=== PATIENT | female | born 2000 | race Caucasian/White ===

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

== ENCOUNTER 2019-06-14 13:14 | Outpatient (CLI) | payer OTHER, MEDICAID ==
[2019-06-14 17:01] LABS: BASOPHILS % (AUTO) 0.4 %; EOSINOPHILS # (AUTO) 0.1 10^3/uL (0.0-0.7); EOSINOPHILS % (AUTO) 0.9 %; HGB - HEMOGLOBIN 12.8 g/dL (12.0-16.0); LYMPHOCYTES # (AUTO) 1.8 10^3/uL (1.5-3.5); LYMPHOCYTES % (AUTO) 33.4 %; MEAN CORPUSCULAR HEMOGLOBIN 29.7 pg (27.0-31.0); MEAN CORPUSCULAR HGB CONC 32.3 g/dL (32.0-36.0); MEAN CORPUSCULAR VOLUME 91.9 fL (81.0-99.0); MONOCYTES # (AUTO) 0.4 10^3/uL (0.0-1.0); MONOCYTES % (AUTO) 6.9 %; NEUTROPHILS # (AUTO) 3.1 10^3/uL (1.5-6.6); NEUTROPHILS % (AUTO) 58.2 %; PLT - PLATELET COUNT 247 10^3/uL (130-450); RED BLOOD COUNT 4.31 10^6/uL (4.20-5.40); RED CELL DISTRIBUTION WIDTH 12.3 % (12.0-15.0); WHITE BLOOD COUNT 5.4 x10^3/uL (4.8-10.8)
[2019-06-14 17:28] LABS: % IRON SATURATION 30 % (20-50); IRON 111 ug/dL (28-170); TOTAL IRON BINDING CAPACITY 365 ug/dL (250-450); TRANSFERRIN 261 mg/dL (192-382)
[2019-06-14 17:34] LABS: FERRITIN 37.3 ng/mL (11.0-306.8)
== END 2019-06-14 13:15 | disposition home or self-care (01) ==
LOC: LAB.S 13:14
PROVIDERS: ATTEND Registered Nurse
DX: R20.2 Paresthesia of skin (principal)
CPT/HCPCS: 36415; 82607; 82728; 83540; 84207; 84443; 84466; 85025

== ENCOUNTER 2019-07-27 16:53 | Outpatient (CLI) | payer MEDICARE, OTHER, MEDICAID ==
--- NOTE | 2019-07-28 01:58 | XRAY Report ---
Reason: RIGHT KNEE PAIN Procedure Date: 07/27/2019 Accession Number: [id number] / [id number] Procedure: XR - Knee 2 View RT CPT Code: Final Report FULL RESULT: EXAM: RIGHT KNEE RADIOGRAPHY EXAM DATE: 07/27/2019 05:09 PM. CLINICAL HISTORY: RIGHT KNEE PAIN. COMPARISON: None. TECHNIQUE: 2 views. FINDINGS: Bones: No acute fractures or suspicious bone lesions. Joints: No effusion. No subluxations. Joint spaces are preserved. Soft Tissues: Unremarkable. IMPRESSION: Unremarkable knee radiography. [facility]
== END 2019-07-27 16:54 | disposition home or self-care (01) ==
LOC: DI 16:53
PROVIDERS: ATTEND Registered Nurse
DX: M25.561 Pain in right knee (principal)

== ENCOUNTER 2019-11-18 13:55 | Outpatient (CLI) | payer MEDICARE, OTHER ==
[2019-11-18 17:55] LABS: BILIRUBIN,URINE NEGATIVE (NEGATIVE); GLUCOSE, URINE (UA) NEGATIVE (NEGATIVE); KETONES,URINE (UA) 15 mg/dL (NEGATIVE); LEUKOCYTE ESTERASE, URINE NEGATIVE (NEGATIVE); NITRITE,URINE NEGATIVE (NEGATIVE); OCCULT BLOOD,URINE NEGATIVE (NEGATIVE); PROTEIN,URINE NEGATIVE (NEGATIVE); UROBILINOGEN,URINE 0.2 (NORMAL) E.U./dL (NORMAL)
[2019-11-18 18:02] LABS: BACTERIA,URINE None Seen /HPF (None Seen); CLARITY,URINE CLOUDY (CLEAR); RBC,URINE None Seen /HPF (0-5); SQUAMOUS EPITHELIAL CELL,UR NONE SEEN (<= Few)
== END 2019-11-18 23:59 | disposition home or self-care (01) ==
LOC: LAB.S 13:55
PROVIDERS: ATTEND Emergency Medicine
DX: N39.0 Urinary tract infection, site not specified (principal)
CPT/HCPCS: 81001; 87086

== ENCOUNTER 2019-12-07 08:00 | Outpatient (CLI) | payer MEDICARE, OTHER | END 2019-12-07 23:59 | disposition home or self-care (01) | LOC: LAB.F 08:00 | PROVIDERS: ATTEND Family Medicine | DX: N39.0 Urinary tract infection, site not specified (principal) | CPT/HCPCS: 81002 ==

== ENCOUNTER 2020-01-30 14:37 | Outpatient (CLI) | payer MEDICARE, MEDICAID | END 2020-01-30 14:38 | disposition critical access hospital (66) | LOC: EMS 14:37 | PROVIDERS: ATTEND Surgery | DX: S69.91XA Unspecified injury of right wrist, hand and finger(s), initial encounter (principal); S80.211A Abrasion, right knee, initial encounter; W18.39XA Other fall on same level, initial encounter; Y93.51 Activity, roller skating (inline) and skateboarding; Y92.480 Sidewalk as the place of occurrence of the external cause | CPT/HCPCS: A0425; A0429 ==

== ENCOUNTER 2020-01-30 15:12 | Emergency (ER) | payer MEDICARE, MEDICAID ==
[2020-01-30] MEDS ORDERED: KETOROLAC 60 MG/2 ML VIAL IM STA (15:17)
[2020-01-30] MEDS ORDERED: ROPIVACAINE 0.5% PF 20 ML AMPULE SUBQ STA (15:17)
[2020-01-30 15:20] VITALS: BP 115/72
--- NOTE | 2020-01-30 15:55 | XRAY Report ---
PROCEDURE: Wrist 4 View RT INDICATIONS: fall, R hand/wrist pain TECHNIQUE: 4 views of the wrist were acquired. COMPARISON: None FINDINGS: Bones: Comminuted, intra-articular fracture of the distal right radius. No dislocations. No suspici ous bony lesions. Scaphoid view: Scapholunate interval appears maintained. The visualized scaphoid appears intact. Soft tissues: No suspicious soft tissue calcifications. IMPRESSION: Comminuted distal right radial fracture with intraarticular extension. Reviewed by: Haseeb Claire MD on 01/30/2020 3:54 PM PDT Approved by: Haseeb Claire MD on 01/30/2020 3:54 PM PDT Station ID: [id number]
[2020-01-30] MEDS ORDERED: BACITRACIN ZINC OINT 1 PACKET TOP STA (16:02)
--- NOTE | 2020-01-30 16:04 | ED Physician Documentation ---
PD HPI UPPER EXT INJURY - Stated complaint Stated Complaint: GLF/HAND INJURY - Chief complaint Chief Complaint: Trauma Ext - History obtained from History obtained from: Patient - History of Present Illness Location: Right, Wrist Type of injury: Fall Where injury occurred: Street Pain level max: 7 Pain level now: 7 Improved by: Rest, Ice, Immobilization Worsened by: Moving, Palpating Associated symptoms: No: Weakness, Numbness, Tingling, Swelling - Additonal information Additional information: 20-year-old female was rollerblading today when she fell landing on the right wrist. Has pain and swelling to the right wrist now. Worse with movement and better with rest. Also has an abrasion to the right knee. Ambulatory on scene. Tetanus up-to-date. Patient is right-handed. 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 Psych: Depression, Anxiety, ADD/ADHD Musculoskeletal: None Derm: None - Past Surgical History Past Surgical History: Yes HEENT: Tonsil/Adenoidectomy - Present Medications Home Medications: Ambulatory Orders Medication Instructions Recorded Confirmed Cyclobenzaprine [Flexeril] 10 mg PO TID PRN #20 tablet 08/28/17 Ondansetron Odt [Zofran] 4 mg TL Q6H PRN #10 tablet 08/28/17 Pramipexole Di-HCl [Mirapex] 1 tab PO DAILY PRN 08/28/17 08/28/17 oxyCODONE/ACET 5/325 [Percocet 5 1 - 2 each PO Q6H PRN #14 tablet 08/28/17 mg/325 mg] Ibuprofen [Motrin] 800 mg PO Q8H PRN #30 tablet 01/30/20 - Allergies Allergies/Adverse Reactions: Allergies Allergy/AdvReac Type Severity Reaction Status Date / Time codeine [Codeine] Allergy throat Verified 01/30/20 15:19 swelling - Social History Does the pt smoke?: Yes Smoking Status: Current every day smoker Does the pt drink ETOH?: No Does the pt have substance abuse?: Yes - Immunizations Immunizations are current?: Yes - POLST Patient has POLST: No PD ED PE NORMAL - Vitals Vital signs reviewed: Yes - General General: Alert and oriented X 3, No acute distress - HEENT HEENT: Atraumatic - Neck Neck: Supple, no meningeal sign, No bony TTP - Back Back: No spinal TTP - Derm Derm: Warm and dry - Extremities Extremities: Other (Abrasion to the right knee. No bony tenderness. Tenderness and swelling to the distal right wrist. No snuffbox tenderness. Otherwise normal examination of the hand, wrist, forearm.) - Neuro Neuro: Alert and oriented X 3 - Psych Psych: Normal mood, Normal affect Results - Vitals Vitals: Vital Signs - 24 hr 01/30/20 15:15 Temperature 37.6 C H Heart Rate 82 Respiratory 18 Rate Blood Pressure 115/72 O2 Saturation 100 Oxygen O2 Source Room air - Rads (name of study) Right wrist x-ray Radiology: Prelim report reviewed, EMP read contemporaneously, See rad report (Comminuted distal right radial fracture with intraarticular extension. ) Procedures - Splint (location) R wrist Splint applied by: Physician, Tech Type of splint: Sugar tong Other: Patient tolerated well, No complications, Neurovascular intact, Good alignment, Sling provided PD MEDICAL DECISION MAKING - ED course Complexity details: reviewed results, re-evaluated patient, considered differential, d/w patient ED course: Splint applied to the right wrist. Sling given. Abrasions were cleansed and bandaged. Tetanus up-to-date. Patient counseled regarding signs and symptoms for which I believe and urgent re-evaluation would be necessary. Patient with good understanding of and agreement to plan and is comfortable going home at this time This document was made in part using voice recognition software. While efforts are made to proofread this document, sound alike and grammatical errors may occur. Departure - Departure Disposition: 01 Home, Self Care Clinical Impression: Abrasion Distal radius fracture, right Qualifiers: Encounter type: initial encounter Fracture type: closed Fracture morphology: unspecified fracture morphology Qualified Code(s): S52.501A - Unspecified fracture of the lower end of right radius, initial encounter for closed fracture Condition: Good Instructions: ED Fx Forearm Radius Ulna No Redu Requ Follow-Up: Paula Marie ARNP [Primary Care Provider] - [facility] [Provider Group] - Within 1 week Prescriptions: Ibuprofen [Motrin] 800 mg PO Q8H PRN #30 tablet PRN Reason: PAIN &/OR FEVER Comments: Return if you worsen. follow up with orthopedics for further care. Keep the splint clean and dry. Call the orthopedic office for an appointment.
== END 2020-01-30 17:08 | disposition home or self-care (01) ==
LOC: EDUNIT# → ED 15:12
DX: S52.571A Other intraarticular fracture of lower end of right radius, initial encounter for closed fracture (principal); S80.211A Abrasion, right knee, initial encounter; V00.111A Fall from in-line roller-skates, initial encounter; Y93.51 Activity, roller skating (inline) and skateboarding; Y92.410 Unspecified street and highway as the place of occurrence of the external cause; F17.200 Nicotine dependence, unspecified, uncomplicated
CPT/HCPCS: 29125; 99283

== ENCOUNTER 2020-07-08 08:00 | Outpatient (CLI) | payer MEDICARE, MEDICAID ==
--- NOTE | 2020-07-08 09:50 | XRAY Report ---
PROCEDURE: Hand 3 View LT INDICATIONS: LEFT HAND PAIN TECHNIQUE: 3 views of the hand(s) acquired. COMPARISON: None FINDINGS: Bones: Oblique minimally displaced fracture of the fourth metacarpal through the metaphysis. No exten raffaele into the carpometacarpal or metacarpophalangeal joint spaces. Remaining bones intact. No suspici ous lytic or blastic osseous.. Soft tissues: No suspicious soft tissue calcifications. IMPRESSION: Oblique minimally displaced fracture of the fourth metacarpal. Reviewed by: Jed Calloway MD on 07/08/2020 8:48 AM [facility] Approved by: Jed Calloway MD on 07/08/2020 8:48 AM [facility] Station ID: [id number]
== END 2020-07-08 23:59 | disposition home or self-care (01) ==
LOC: DI.S 08:00
PROVIDERS: ATTEND Physician Assistant Medical
DX: S62.395A Other fracture of fourth metacarpal bone, left hand, initial encounter for closed fracture (principal)

== ENCOUNTER 2020-07-19 08:00 | Outpatient (CLI) | payer MEDICARE, MEDICAID | END 2020-07-19 23:59 | disposition home or self-care (01) | LOC: LAB.F 08:00 | PROVIDERS: ATTEND Registered Nurse | DX: Z32.00 Encounter for pregnancy test, result unknown (principal) ==

== ENCOUNTER 2020-08-07 09:37 | Outpatient (CLI) | payer MEDICARE, MEDICAID ==
[2020-08-07 14:49] LABS: BASOPHILS % (AUTO) 0.6 %; EOSINOPHILS # (AUTO) 0.1 10^3/uL (0.0-0.7); EOSINOPHILS % (AUTO) 1.5 %; HCT - HEMATOCRIT 42.3 % (37.0-47.0); HGB - HEMOGLOBIN 13.4 g/dL (12.0-16.0); LYMPHOCYTES # (AUTO) 1.4 10^3/uL (1.5-3.5); LYMPHOCYTES % (AUTO) 42.8 %; MEAN CORPUSCULAR HEMOGLOBIN 29.6 pg (27.0-31.0); MEAN CORPUSCULAR HGB CONC 31.7 g/dL (32.0-36.0); MEAN CORPUSCULAR VOLUME 93.4 fL (81.0-99.0); MONOCYTES # (AUTO) 0.2 10^3/uL (0.0-1.0); MONOCYTES % (AUTO) 7.4 %; NEUTROPHILS # (AUTO) 1.6 10^3/uL (1.5-6.6); NEUTROPHILS % (AUTO) 47.7 %; PLT - PLATELET COUNT 254 10^3/uL (130-450); RED BLOOD COUNT 4.53 10^6/uL (4.20-5.40); RED CELL DISTRIBUTION WIDTH 12.8 % (12.0-15.0); WHITE BLOOD COUNT 3.3 x10^3/uL (4.8-10.8)
== END 2020-08-07 09:38 | disposition home or self-care (01) ==
LOC: LAB.S 09:37
PROVIDERS: ATTEND Registered Nurse
DX: K44.9 Diaphragmatic hernia without obstruction or gangrene (principal); R11.2 Nausea with vomiting, unspecified; K57.90 Diverticulosis of intestine, part unspecified, without perforation or abscess without bleeding; R39.15 Urgency of urination; N39.0 Urinary tract infection, site not specified
CPT/HCPCS: 36415; 85025; 87086

== ENCOUNTER 2020-08-12 09:04 | Outpatient (CLI) | payer MEDICARE, MEDICAID | END 2020-08-12 23:59 | disposition home or self-care (01) | LOC: LAB.R 09:04 | PROVIDERS: ATTEND Registered Nurse | DX: K44.9 Diaphragmatic hernia without obstruction or gangrene (principal); R11.2 Nausea with vomiting, unspecified; K57.90 Diverticulosis of intestine, part unspecified, without perforation or abscess without bleeding | CPT/HCPCS: 82270 ==

== ENCOUNTER 2020-12-03 20:35 | Emergency (ER) | payer MEDICARE, MEDICAID ==
[2020-12-03 20:45] VITALS: BP 136/83
== END 2020-12-03 22:02 | disposition left against medical advice (07) ==
LOC: ED 20:35
DX: Z53.21 Procedure and treatment not carried out due to patient leaving prior to being seen by health care provider (principal)

== ENCOUNTER 2021-03-31 11:52 | Outpatient (CLI) | payer MEDICARE, MEDICAID ==
[2021-03-31 14:58] LABS: BASOPHILS % (AUTO) 0.8 %; EOSINOPHILS # (AUTO) 0.1 10^3/uL (0.0-0.7); EOSINOPHILS % (AUTO) 1.5 %; HCT - HEMATOCRIT 40.4 % (37.0-47.0); LYMPHOCYTES # (AUTO) 1.3 10^3/uL (1.5-3.5); MEAN CORPUSCULAR HEMOGLOBIN 30.1 pg (27.0-31.0); MEAN CORPUSCULAR HGB CONC 32.2 g/dL (32.0-36.0); MEAN CORPUSCULAR VOLUME 93.5 fL (81.0-99.0); MEAN PLATELET VOLUME 9.9 fL (7.9-10.8); MONOCYTES # (AUTO) 0.3 10^3/uL (0.0-1.0); MONOCYTES % (AUTO) 8.6 %; NEUTROPHILS # (AUTO) 2.2 10^3/uL (1.5-6.6); NEUTROPHILS % (AUTO) 55.8 %; PLT - PLATELET COUNT 246 10^3/uL (130-450); RED BLOOD COUNT 4.32 10^6/uL (4.20-5.40); RED CELL DISTRIBUTION WIDTH 12.4 % (12.0-15.0)
[2021-03-31 15:03] LABS: ALBUMIN 4.6 g/dL (3.2-5.5); ALBUMIN/GLOBULIN RATIO 2.3 (1.0-2.2); BILIRUBIN,TOTAL 1.1 mg/dL (0.2-1.0); CALCIUM 9.3 mg/dL (8.5-10.3); CREATININE 0.5 mg/dL (0.4-1.0); POTASSIUM 3.9 mmol/L (3.5-5.0); TOTAL PROTEIN 6.6 g/dL (6.7-8.2)
== END 2021-03-31 23:59 | disposition home or self-care (01) ==
LOC: LAB.S 11:52
PROVIDERS: ATTEND Nurse Practitioner
DX: R25.2 Cramp and spasm (principal)
CPT/HCPCS: 36415; 80053; 85025

== ENCOUNTER 2021-06-02 08:00 | Outpatient (CLI) | payer MEDICARE, MEDICAID | END 2021-06-02 23:59 | disposition home or self-care (01) | LOC: LAB 08:00 | PROVIDERS: ATTEND Physician Assistant Medical | DX: U07.1 COVID-19 (principal) | CPT/HCPCS: 87070; U0004 ==

== ENCOUNTER 2022-04-25 03:45 | Emergency (ER) | payer MEDICARE, MEDICAID ==
[2022-04-25] MEDS ORDERED: RABIES IMMUNE GLOBULIN 300 UNITS/2 ML IM STA (04:10)
[2022-04-25] MEDS ORDERED: RABIES VACCINE 2.5 UNIT SYRINGE IM ONE (04:10)
--- NOTE | 2022-04-25 04:34 | ED Physician Documentation ---
History of Present Illness - Stated complaint Stated Complaint: RABIES VAC - Chief complaint Chief Complaint: Laceration - Additonal information Additional information: Patient is a 22-year-old female With no significant past medical history presenting for evaluation of rabies shot. Patient was scratched on her right arm 3 days ago by One of her 4 ferrets. The same ferret today's started exhibiting abnormal behavior with Foaming at the mouth, seizure activity, Chewing its own pause. This prompted concern That the ferret had possibly contracted rabies as it does also go outside. The other 3 ferrets are acting normally. The Ferretts vaccinations are up-to-date including having received the rabies shots.Patient called 911 And paramedics advised that she come to the ER. The blasting contract miner spoke to her and plans to have animal control come out tomorrow to take the ferrets and try to test it for rabies. Patient's tetanus shot is up-to-date.Patient does not think that she has previously been vaccinated for rabies. 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 HEENT: None Psych: Depression, Anxiety, ADD/ADHD Musculoskeletal: None Derm: None - Past Surgical History Past Surgical History: Yes HEENT: Tonsil/Adenoidectomy - Present Medications Home Medications: Ambulatory Orders Medication Instructions Recorded Confirmed No Known Home Medications 04/25/22 04/25/22 - Allergies Allergies/Adverse Reactions: Allergies Allergy/AdvReac Type Severity Reaction Status Date / Time codeine [Codeine] Allergy throat Verified 04/25/22 03:55 swelling - Social History Does the pt smoke?: Yes Smoking Status: Current every day smoker Does the pt drink ETOH?: No Does the pt have substance abuse?: Yes - Immunizations Immunizations are current?: Yes - POLST Patient has POLST: No PD ED PE NORMAL - General General: Alert and oriented X 3, No acute distress, Well developed/nourished - HEENT HEENT: Atraumatic, Moist mucous membranes - Neck Neck: Supple, no meningeal sign - Cardiac Cardiac: RRR - Respiratory Respiratory: No respiratory distress - Derm Derm: No rash, Other (Small healed superficial wound to right arm) - Extremities Extremities: No edema Results - Vitals Vitals: Vital Signs - 24 hr 04/25/22 04/25/22 03:48 05:04 Temperature 36.5 C Heart Rate 86 89 Respiratory 18 18 Rate Blood Pressure 124/62 131/86 H O2 Saturation 100 100 Oxygen O2 Source Room air PD MEDICAL DECISION MAKING - ED course ED course: Patient presenting for rabies vaccination after being scratched by her ferrets and her ferret exhibiting abnormal behaviors today.Patient received rabies immunoglobulin and first dose of the vaccine series. She is instructed to return to the ER for the remainder of the vaccination. She is is aware of the importance of completing the series. Departure - Departure Disposition: 01 Home, Self Care Clinical Impression: Need for rabies vaccination Condition: Stable Instructions: Rabies Comments: You have received rabies Immunoglobulin and the first vaccination for rabies. In order to complete the rabies vaccine you will need to return on Day 3 (Apr 28); Day 7 (May 02), and Day 14 (May 09). It is very important that you return to the emergency department on these days in order to receive the rest of the vaccination series.
[2022-04-25 05:05] VITALS: BP 131/86
== END 2022-04-25 05:04 | disposition home or self-care (01) ==
LOC: ED 03:45
DX: Z20.3 Contact with and (suspected) exposure to rabies (principal); Z29.14 Encounter for prophylactic rabies immune globulin
CPT/HCPCS: 90471; 96372; 99281; 99282

== ENCOUNTER 2022-04-28 16:49 | Emergency (ER) | payer MEDICARE, MEDICAID ==
--- NOTE | 2022-04-28 17:40 | ED Physician Documentation ---
History of Present Illness - Stated complaint Stated Complaint: RABIES VAC - Chief complaint Chief Complaint: General - History obtained from History obtained from: Patient - Additonal information Additional information: Patient comes to the emergency department for chief complaint of needing a second rabies vaccine shot. The patient states that she has pet ferrets and that 3 days ago, she heard a high-pitched screaming sound coming from the cage and came in to find one of her ferrets bloody, arching, and foaming at the mouth, making the noise. She states that the ferret tried to attack her, even though it had just sat calmly in her hands earlier in the day. She did not actually end up getting bitten, though she does have bruises on her upper arm from the ferret trended by her through her close. Patient states the ferret the next day and remained in the same agonizing condition all that night. The patient states none of her other ferrets have had any symptoms. She has already gotten 1 rabies vaccine and is here for her second. The patient denies any symptoms herself. Review of Systems Ten Systems: 10 systems reviewed and negative Constitutional: reports: Reviewed and negative Eyes: reports: Reviewed and negative Ears: reports: Reviewed and negative Nose: reports: Reviewed and negative Throat: reports: Reviewed and negative Cardiac: reports: Reviewed and negative Respiratory: reports: Reviewed and negative GI: reports: Reviewed and negative : reports: Reviewed and negative Skin: reports: Reviewed and negative Musculoskeletal: reports: Reviewed and negative Neurologic: reports: Reviewed and negative Psychiatric: reports: Reviewed and negative Endocrine: reports: Reviewed and negative Immunocompromised: reports: Reviewed and negative PD PAST MEDICAL HISTORY - Past Medical History Cardiovascular: None Respiratory: None Endocrine/Autoimmune: None GI: GERD 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 : None HEENT: None Psych: Depression, Anxiety, ADD/ADHD Musculoskeletal: None Derm: None - Past Surgical History Past Surgical History: Yes HEENT: Tonsil/Adenoidectomy - Present Medications Home Medications: Ambulatory Orders Medication Instructions Recorded Confirmed No Known Home Medications 04/25/22 04/25/22 - Allergies Allergies/Adverse Reactions: Allergies Allergy/AdvReac Type Severity Reaction Status Date / Time codeine [Codeine] Allergy throat Verified 04/28/22 17:16 swelling - Social History Does the pt smoke?: Yes Smoking Status: Current every day smoker Does the pt drink ETOH?: No Does the pt have substance abuse?: Yes - Immunizations Immunizations are current?: Yes - POLST Patient has POLST: No PD ED PE NORMAL - Vitals Vital signs reviewed: Yes - General General: Alert and oriented X 3, No acute distress, Well developed/nourished - HEENT HEENT: Atraumatic, PERRL, EOMI, Moist mucous membranes - Neck Neck: Supple, no meningeal sign - Cardiac Cardiac: RRR, No murmur, Strong equal pulses - Respiratory Respiratory: No respiratory distress, Clear bilaterally - Derm Derm: Normal color, Warm and dry, No rash, Other (Contusions without skin breakage left upper arm.) - Extremities Extremities: No deformity - Neuro Neuro: Alert and oriented X 3 - Psych Psych: Normal mood, Normal affect Results - Vitals Vitals: Vital Signs - 24 hr 04/28/22 17:14 Temperature 36.6 C Heart Rate 78 Respiratory 14 Rate Blood Pressure 135/60 H O2 Saturation 100 Oxygen O2 Source Room air PD MEDICAL DECISION MAKING - ED course Complexity details: considered differential, d/w patient ED course: The patient was given her rabies vaccine and discharged with instructions to return according to the vaccine schedule. Departure - Departure Disposition: 01 Home, Self Care Clinical Impression: Rabies exposure Condition: Stable Instructions: Rabies Vaccine suspension for injection Comments: You have been given your second shot of rabies vaccine today. Please follow-up according to your schedule for the subsequent doses until your course is complete.
[2022-04-28] MEDS: RABIES VACCINE 2.5 UNIT SYRINGE IM ONE (17:48)
[2022-04-28 18:00] VITALS: BP 112/71
== END 2022-04-28 18:00 | disposition home or self-care (01) ==
LOC: ED 16:49
DX: Z29.14 Encounter for prophylactic rabies immune globulin (principal); Z23 Encounter for immunization; Z71.85 Encounter for immunization safety counseling; F17.200 Nicotine dependence, unspecified, uncomplicated
CPT/HCPCS: 90471; 99281

== ENCOUNTER 2022-05-02 20:30 | Emergency (ER) | payer MEDICARE, MEDICAID ==
[2022-05-02] MEDS ORDERED: RABIES VACCINE 2.5 UNIT SYRINGE IM ONE (20:39)
--- NOTE | 2022-05-02 20:40 | ED Physician Documentation ---
History of Present Illness - Stated complaint Stated Complaint: RABIES VACCINE - History obtained from History obtained from: Patient - Additonal information Additional information: This is a 22-year-old female who presents for a rabies vaccine. She has started the series as per prior notes after getting scratched by her ferret which subsequently exhibited signs of illness. Prior notes reviewed. Patient has not had any symptoms, she has tolerated the other vaccines well. 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 HEENT: None Psych: Depression, Anxiety, ADD/ADHD Musculoskeletal: None Derm: None - Past Surgical History Past Surgical History: Yes HEENT: Tonsil/Adenoidectomy - Present Medications Home Medications: Ambulatory Orders Medication Instructions Recorded Confirmed No Known Home Medications 04/25/22 05/02/22 - Allergies Allergies/Adverse Reactions: Allergies Allergy/AdvReac Type Severity Reaction Status Date / Time codeine [Codeine] Allergy throat Verified 05/02/22 20:43 swelling - Social History Does the pt smoke?: Yes Smoking Status: Current every day smoker Does the pt drink ETOH?: No Does the pt have substance abuse?: Yes - Immunizations Immunizations are current?: Yes - POLST Patient has POLST: No Results - Vitals Vitals: Vital Signs - 24 hr 05/02/22 20:41 Temperature 36.3 C L Heart Rate 88 Respiratory 16 Rate Blood Pressure 116/62 O2 Saturation 97 Oxygen O2 Source Room air PD MEDICAL DECISION MAKING - ED course Complexity details: reviewed old records, d/w patient ED course: Pt presented for the next rabies vaccine in her series of vaccines after getting scratched by a pet ferret. She has not had any sx of rabies or other illness and has tolerated prior injections well. She will return on May 09 for the final shot in this series. Departure - Departure Disposition: Home, Self Care Condition: Good Comments: Please follow-up on May 09 for the final shot in your rabies vaccine series. It is important that you stick to the schedule. Please return if you have new symptoms or any other concerns
[2022-05-02 21:13] VITALS: BP 122/69
== END 2022-05-02 21:13 | disposition home or self-care (01) ==
LOC: ED 20:30
DX: Z29.14 Encounter for prophylactic rabies immune globulin (principal); F17.200 Nicotine dependence, unspecified, uncomplicated
CPT/HCPCS: 90471; 99281

== ENCOUNTER 2022-05-09 13:37 | Emergency (ER) | payer MEDICARE, MEDICAID ==
[2022-05-09 13:46] VITALS: BP 125/82
--- NOTE | 2022-05-09 13:57 | ED Physician Documentation ---
History of Present Illness - Stated complaint Stated Complaint: NEEDS FINAL RABIES SHOT - Chief complaint Chief Complaint: General - History obtained from History obtained from: Patient - History of Present Illness Timing: Today - Additonal information Additional information: 22-year-old Quin Pineda was exposed to her ferret who unexpectedly and the vet was concerned about the possibility of rabies and has recommended the patient get a rabies vaccination series. The patient has completed the other doses of her rabies vaccination and today is the last day of her series. She presents to the emergency department for vaccination on schedule. she denies any specific symptoms. She is not otherwise ill. 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: None Psych: Depression, Anxiety, ADD/ADHD Musculoskeletal: None Derm: None - Past Surgical History Past Surgical History: Yes HEENT: Tonsil/Adenoidectomy - Present Medications Home Medications: Ambulatory Orders Medication Instructions Recorded Confirmed No Known Home Medications 04/25/22 05/02/22 - Allergies Allergies/Adverse Reactions: Allergies Allergy/AdvReac Type Severity Reaction Status Date / Time codeine [Codeine] Allergy throat Verified 05/02/22 20:43 swelling - Social History Does the pt smoke?: Yes Smoking Status: Current every day smoker Does the pt drink ETOH?: No Does the pt have substance abuse?: Yes - Immunizations Immunizations are current?: Yes - POLST Patient has POLST: No PD ED PE NORMAL - Vitals Vital signs reviewed: Yes (normal ) - General General: Alert and oriented X 3, No acute distress, Well developed/nourished - HEENT HEENT: Atraumatic, PERRL, EOMI - Neck Neck: No bony TTP - Respiratory Respiratory: No respiratory distress - Derm Derm: Normal color, Warm and dry, No rash - Extremities Extremities: No deformity, No edema - Neuro Neuro: Alert and oriented X 3, 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, No motor deficit, No sensory deficit, Normal speech Eye Opening: Spontaneous Motor: Obeys Commands Verbal: Oriented GCS Score: 15 - Psych Psych: Normal mood, Normal affect Results - Vitals Vitals: Vital Signs - 24 hr 05/09/22 13:45 Temperature 37.0 C Heart Rate 77 Respiratory 18 Rate Blood Pressure 125/82 H O2 Saturation 100 Oxygen O2 Source Room air PD MEDICAL DECISION MAKING - ED course Complexity details: considered differential, d/w patient ED course: 22-year-old female needing the last of her rabies vaccination series is given her last dose of rabies vaccination here at the emergency department in the triage area. Departure - Departure Disposition: 01 Home, Self Care Clinical Impression: Need for rabies vaccination Condition: Stable Instructions: Rabies Vaccine suspension for injection Follow-Up: Paula Marie ARNP [Credentialed Staff Provider] -
[2022-05-09] MEDS ORDERED: RABIES VACCINE 2.5 UNIT SYRINGE IM ONE (14:02)
== END 2022-05-09 15:00 | disposition home or self-care (01) ==
LOC: ED 13:37
DX: Z29.14 Encounter for prophylactic rabies immune globulin (principal); Z23 Encounter for immunization; Z71.85 Encounter for immunization safety counseling
CPT/HCPCS: 90471; 99281; 99282

== ENCOUNTER 2022-07-22 08:00 | Outpatient (CLI) | payer MEDICARE, MEDICAID | END 2022-07-22 23:59 | disposition home or self-care (01) | LOC: LAB.S 08:00 | PROVIDERS: ATTEND Nurse Practitioner | DX: Z32.00 Encounter for pregnancy test, result unknown (principal) ==

== ENCOUNTER 2022-07-23 08:36 | Outpatient (CLI) | payer MEDICARE, MEDICAID ==
[2022-07-23 14:29] LABS: BASOPHILS % (AUTO) 0.8 %; EOSINOPHILS # (AUTO) 0.1 10^3/uL (0.0-0.7); EOSINOPHILS % (AUTO) 3.2 %; HCT - HEMATOCRIT 42.8 % (37.0-47.0); HGB - HEMOGLOBIN 13.8 g/dL (12.0-16.0); LYMPHOCYTES # (AUTO) 1.3 10^3/uL (1.5-3.5); LYMPHOCYTES % (AUTO) 34.4 %; MEAN CORPUSCULAR HEMOGLOBIN 29.3 pg (27.0-31.0); MEAN CORPUSCULAR HGB CONC 32.2 g/dL (32.0-36.0); MEAN CORPUSCULAR VOLUME 90.9 fL (81.0-99.0); MEAN PLATELET VOLUME 10.2 fL (7.9-10.8); MONOCYTES # (AUTO) 0.3 10^3/uL (0.0-1.0); MONOCYTES % (AUTO) 7.7 %; NEUTROPHILS % (AUTO) 53.6 %; PLT - PLATELET COUNT 254 10^3/uL (130-450); RED BLOOD COUNT 4.71 10^6/uL (4.20-5.40); RED CELL DISTRIBUTION WIDTH 12.5 % (12.0-15.0); WHITE BLOOD COUNT 3.8 x10^3/uL (4.8-10.8)
[2022-07-23 15:20] LABS: ALBUMIN 4.5 g/dL (3.2-5.5); ALBUMIN/GLOBULIN RATIO 1.7 (1.0-2.2); BILIRUBIN,TOTAL 0.9 mg/dL (0.2-1.0); CALCIUM 9.3 mg/dL (8.5-10.3); CREATININE 0.6 mg/dL (0.4-1.0); POTASSIUM 3.9 mmol/L (3.5-5.0); TOTAL PROTEIN 7.1 g/dL (6.7-8.2)
[2022-07-23 15:39] LABS: THYROID STIMULATING HORMONE 1.25 uIU/mL (0.34-5.60)
== END 2022-07-23 08:37 | disposition home or self-care (01) ==
LOC: LAB.S 08:36
PROVIDERS: ATTEND Nurse Practitioner
DX: E04.1 Nontoxic single thyroid nodule (principal); R11.2 Nausea with vomiting, unspecified
CPT/HCPCS: 36415; 80053; 84443; 85025

== ENCOUNTER 2022-07-30 08:00 | Outpatient (CLI) | payer MEDICARE, MEDICAID, OTHER ==
[2022-07-31 01:18] LABS: CHLAMYDIA TRACHOMATIS DNA NEGATIVE (NEGATIVE); NEISSERIA GONORRHOEAE DNA NEGATIVE (NEGATIVE)
[2022-07-31 01:20] LABS: BACTERIAL VAGINOSIS DNA NEGATIVE (NEGATIVE); CANDIDA GLABRATA DNA NEGATIVE (NEGATIVE); CANDIDA GROUP DNA NEGATIVE (NEGATIVE); CANDIDA KRUSEI DNA NEGATIVE (NEGATIVE); TRICHOMONAS VAGINALIS DNA NEGATIVE (NEGATIVE)
== END 2022-07-30 23:59 | disposition home or self-care (01) ==
LOC: LAB.WC 08:00
PROVIDERS: ATTEND Nurse Practitioner
DX: Z11.3 Encounter for screening for infections with a predominantly sexual mode of transmission (principal); N89.8 Other specified noninflammatory disorders of vagina
CPT/HCPCS: 81514; 87491; 87591; 87661

== ENCOUNTER 2022-09-02 12:25 | Outpatient (CLI) | payer MEDICARE, MEDICAID ==
--- NOTE | 2022-09-02 15:58 | Ultrasound Report ---
PROCEDURE: Pelvic w/Transvaginal INDICATIONS: ABN UTERINE BLEEDING TECHNIQUE: Real-time scanning was performed of the pelvic organs, with image documentation. Additional endovagi nal scanning was necessary due to incomplete visualization of the adnexal and endometrial structures by transabdominal scanning. COMPARISON: None. FINDINGS: Uterus: Uterus is anteverted and normal in size at 6.6 x 3.9 x 5.1 cm. The myometrium is homogeneou s. The endometrium measures 10 mm in combined thickness. Ovaries: The right ovary measures 2.9 x 2.0 x 2.0 cm, with a calculated ovarian volume of 6 cc. The left ovary measures 2.4 x 1.0 x 1.9 cm, with a calculated ovarian volume of 2.3 cc. The ovaries hav e a normal sonographic appearance. Less than 12 follicles can be seen in each ovary. No adnexal mas ses are seen. Other: No pathologic free abdominal or pelvic fluid. IMPRESSION: Unremarkable pelvic ultrasound. Reviewed by: Eleazar Hernandez on 09/02/2022 3:56 PM PDT Approved by: Eleazar Hernandez on 09/02/2022 3:56 PM PDT Station ID: [id number]
--- NOTE | 2022-09-03 11:39 | Ultrasound Report ---
LIMITED ULTRASOUND OF LEFT BREAST: 09/02/2022 CLINICAL: Intermittent pain in left breast. No prior exams were available for comparison. Color flow ultrasound of the left breast 9 o'clock region was performed. Cooper scale images of the r eal-time examination were reviewed. IMPRESSION: NEGATIVE There is no sonographic evidence of malignancy. There is no abnormality seen in the left breast to correspond with the area of clinical concern at 9 o'clock, however, clinical correlation and clinical followup are recommended. This exam was interpreted at Station ID: [id number]. Electronically Signed By: Deni Amador M.D. lc/:09/02/2022 14:41:35 Ultrasound BI-RADS: 1 Negative BI-RADS CATEGORY: (1) - 1 Unspecified - other recall n/a LATERALITY: (B)
== END 2022-09-02 12:26 | disposition home or self-care (01) ==
LOC: DI 12:25
PROVIDERS: ATTEND Nurse Practitioner
DX: N93.9 Abnormal uterine and vaginal bleeding, unspecified (principal); N64.4 Mastodynia

== ENCOUNTER 2022-09-07 14:39 | Outpatient (CLI) | payer MEDICARE, MEDICAID ==
[2022-09-08 08:40] VITALS: BP 118/64
--- NOTE | 2022-09-08 08:40 | SLEEP CARE CONSULTATION ---
Information from patient questionnaire entered by Hugo Sweeney. I have reviewed and concur with the information entered by Hugo Sweeney. This document represents the service I personally performed and the decisions made by me, Hadley Palacio MD, [facility]. History of Present Illness Service Date and Time: 09/07/2022 1439 Reason for Visit: New patient Chief Complaint: reports: Unrefreshed sleep, Excessive daytime sleepiness Date of Onset: YRS Usual bedtime: 11PM Time it takes to fall asleep: 2HRS Snores at night: Yes Observed to quit breathing while asleep: Yes Sleeps alone due to snoring: No Reasons for waking at night: reports: Bathroom Toss, Turn, or Twitch while sleeping: Yes Recalls having dreams: Yes Usually gets out of bed at: 9AM Feels refreshed in the morning: No Morning headache: Yes (1HR) Sleepy or fatigued during the day: Yes Ever fallen asleep while driving: No Takes day naps: Yes Dreams during day naps: Yes Prior sleep studies: No Additional HPI information: Ms. Pineda returned today for follow up of restless leg syndrome treatment. On her last visit several years ago, she was taking 1 mg of ropinirole in the evening with good results. She did not have side effects such as drowsiness, dizziness, muscle weakness, or visual disturbance. She ran out of the medication long time ago. She is again bothered by the restlessness in her legs in the evening. She also reports cramping in her calves. She is taking trazodone at night to help falling asleep. She reports going to bed around 8:30 9 pm and turning the light off at 11 pm. She gets out of bed at 9 am. - Parasomnia Symptoms Ever been unable to move upon waking from sleep: No Walks in sleep: No Talks in sleep: Yes Ever acted out dreams in sleep: Yes Ever felt weak in the knees when startled or emotional: No Bothered by creepy, crawly, restless sensations in legs: Yes Problems with memory or concentration: Yes Subjective Initial [place] Sleepiness Scale score: 11 (09/07/22) Past Medical History Past Medical History: reports: Attention deficit Social History The patient's occupation is a [employer]. Patient is Single and lives in [place]. Have you smoked in the past 12 months: Yes Cigarettes per day (20/pack): 0 (VAPER) Years of smokin Quit date: 09/07/22 Smoking Pack Years: 0 Alcohol use: Yes Alcohol amount and frequency: 1DRINK ELSY Caffeine use: No Family History Family history of sleep disordered breathing: Yes Family Hx Sleep Apnea: Father: Snoring, Sleep apnea - Treated, Grandparent: Snoring, Sleep apnea - Treated Allergies and Home Medications Known drug allergies: Yes (CODIENE, VICODIN) Drug allergies reviewed: Yes Home medication list reviewed: Yes Allergy and home medication list: Allergies codeine [Codeine] Allergy (Verified 09/04/22 13:31) throat swelling Review of Systems Weight gain over past 5 years: 20 Cardiovascular: denies: high blood pressure, palpitations, chest pain, irregular heart rate or pulse, leg or foot swelling, have to sleep sitting up, other Respiratory: denies: shortness of breath, wheeze, sputum production, chronic cough, other Gastrointestinal: reports: nausea Neurological: denies: headaches, seizure, head trauma, disorientation, speech dysfunction, gait or balance problems, fainting or unconsciousness, other Psychiatric: reports: Attention Deficit Hyperactivity Ear/Nose/Throat: reports: wisdom teeth removed Endocrine: reports: history of goiter, too hot or cold Musculoskeletal: denies: joint pain, neck pain, back pain, joint swelling, muscle pain or cramping, mobility problems, other Immunologic: denies: sneezing, rash, itching, allergies to food or environment, other Physical Exam Vital signs obtained and entered by: HUGO Aldrich MA Blood Pressure: 118/64 (LEFT ARM) Cuff size: regular Heart Rate: 78 O2 Saturation: 98 Height: 5 ft 5 in Weight: 164 lb 9.6 oz Body Mass Index: 27.3 BMI Classification: Overweight Neck circumference: 14.5 Mood/affect: Normal HEENT: No craniofacial malformation Neurologic: intact Impression and Plan IMPRESSION: 1. Restless leg syndrome, with the patient responding well to ropinirole 1 mg in the evening and no side effect. According to her, her iron levels are within normal limits. I will refill the medication. 2. Insomnia, due to excessive time spent in bed of 11 hours a night. I advised her to not go to bed until 1 am if she wants to keep waking up at [address], she does not have to take trazodone. PLAN: 1. Refill ropinirole 1 mg qd on as needed basis for restless leg; 5 refills. 2. Maintain a regular wake up time and spend no more than 8 hours in bed at night. Avoid naps. 3. Return for follow up in a year or earlier if there is any problem. Counseling Topics: Weight control Prescriptions: Other (ropinirole 1 mg) Follow up with Sleep Care in: 1 year Visit Type: In Office Time Spent with Patient (minutes): 15 Provider Statement: I spent 100% of the Face to Face Visit with the patient with greater than 50% spent counseling the patient and coordination of care.
== END 2022-09-07 14:40 | disposition home or self-care (01) ==
LOC: SC 14:39
PROVIDERS: ATTEND Internal Medicine Pulmonary Disease
DX: G25.81 Restless legs syndrome (principal); G47.00 Insomnia, unspecified; Z79.899 Other long term (current) drug therapy; E66.3 Overweight; Z68.27 Body mass index [BMI] 27.0-27.9, adult; Z87.891 Personal history of nicotine dependence
CPT/HCPCS: 99202; G0463; 99212

== ENCOUNTER 2022-11-25 08:53 | Outpatient (CLI) | payer MEDICARE, MEDICAID ==
--- NOTE | 2022-11-25 10:32 | Ultrasound Report ---
PROCEDURE: Abdomen Limited INDICATIONS: NAUSEA TECHNIQUE: Real-time focused scanning was performed of the abdomen, with image documentation. COMPARISONS: None. FINDINGS: Liver: Liver is normal in size and heterogeneously echogenic in echotexture. Gallbladder: Gallbladder is within normal limits. Biliary ducts: Intrahepatic bile ducts are non-dilated. Extrahepatic bile duct caliber measures 4 m m. Normal is 6-7 mm or less in diameter, or 10 mm or less post-cholecystectomy. Pancreas: Visualized portions of the pancreas are sonographically normal. Right kidney: Normal in size and echotexture. Right kidney measures 11.0 cm long. No hydronephrosis or nephrolithiasis. No solid masses. No complex renal cystic lesions which require follow-up. Aorta: Visualized aorta is normal in caliber at less than 3 cm. IVC: Intrahepatic inferior vena cava is patent. Miscellaneous: No free abdominal fluid. IMPRESSION: Mildly heterogeneous liver parenchymal echotexture suggestive of mild hepatic steatosis. No discrete hepatic lesion. Rest of the exam is unremarkable. Reviewed by: Jeff Rosa MD on 11/25/2022 10:30 AM PDT Approved by: Jeff Rosa MD on 11/25/2022 10:30 AM PDT Station ID: [id number]
== END 2022-11-25 08:54 | disposition home or self-care (01) ==
LOC: DI 08:53
PROVIDERS: ATTEND Surgery
DX: R11.0 Nausea (principal)

== ENCOUNTER 2023-03-18 11:49 | Emergency (ER) | payer MEDICARE, MEDICAID ==
[2023-03-18 12:07] VITALS: BP 126/60; O2SAT 99
[2023-03-18 12:33] LABS: BILIRUBIN,URINE NEGATIVE (NEGATIVE); GLUCOSE, URINE (UA) NEGATIVE (NEGATIVE); KETONES,URINE (UA) NEGATIVE (NEGATIVE); LEUKOCYTE ESTERASE, URINE TRACE (NEGATIVE); NITRITE,URINE NEGATIVE (NEGATIVE); OCCULT BLOOD,URINE NEGATIVE (NEGATIVE); PH,URINE 6.5 PH (5.0-7.5); PROTEIN,URINE NEGATIVE (NEGATIVE); UROBILINOGEN,URINE 0.2 (NORMAL) E.U./dL (NORMAL)
[2023-03-18 12:34] LABS: BASOPHILS % (AUTO) 0.5 %; EOSINOPHILS # (AUTO) 0.1 10^3/uL (0.0-0.7); HCT - HEMATOCRIT 39.9 % (37.0-47.0); HGB - HEMOGLOBIN 13.3 g/dL (12.0-16.0); LYMPHOCYTES # (AUTO) 1.5 10^3/uL (1.5-3.5); LYMPHOCYTES % (AUTO) 24.4 %; MEAN CORPUSCULAR HGB CONC 33.3 g/dL (32.0-36.0); MEAN CORPUSCULAR VOLUME 89.9 fL (81.0-99.0); MONOCYTES # (AUTO) 0.4 10^3/uL (0.0-1.0); MONOCYTES % (AUTO) 7.1 %; NEUTROPHILS # (AUTO) 4.2 10^3/uL (1.5-6.6); NEUTROPHILS % (AUTO) 66.8 %; PLT - PLATELET COUNT 266 10^3/uL (130-450); RED BLOOD COUNT 4.44 10^6/uL (4.20-5.40); RED CELL DISTRIBUTION WIDTH 12.9 % (12.0-15.0); WHITE BLOOD COUNT 6.2 x10^3/uL (4.8-10.8)
[2023-03-18 12:35] LABS: CLARITY,URINE CLEAR (CLEAR)
[2023-03-18 12:45] LABS: BACTERIA,URINE Rare /HPF (None Seen); RBC,URINE None Seen /HPF (0-5); SQUAMOUS EPITHELIAL CELL,UR FEW Squamous (<= Few)
[2023-03-18 12:50] LABS: ALBUMIN 4.8 g/dL (3.2-5.5); ALBUMIN/GLOBULIN RATIO 2.5 (1.0-2.2); BILIRUBIN,TOTAL 0.7 mg/dL (0.2-1.0); CALCIUM 9.5 mg/dL (8.5-10.3); CREATININE 0.6 mg/dL (0.6-1.3); POTASSIUM 3.8 mmol/L (3.5-4.5); TOTAL PROTEIN 6.7 g/dL (6.4-8.9)
--- NOTE | 2023-03-18 13:30 | ED Physician Documentation ---
History of Present Illness - Stated complaint Stated Complaint: - Chief complaint Chief Complaint: Abd Pain - History obtained from History obtained from: Patient - History of Present Illness Pain level max: 1 Pain level now: 0 - Additonal information Additional information: 23-year-old female presents to the emergency department stating that she has had intermittent left sided pelvic pain for the past several weeks. She has had nausea for the past 1 to 2 weeks as well. Took a home test that was positive. No vaginal bleeding or discharge. Has had mild dysuria. G1, P0. Not having any pain currently. The pain is mild, 1-2 out of 10 when it occurs. Nothing seems to make it better or worse. Review of Systems Constitutional: denies: Fever, Chills Cardiac: denies: Chest pain / pressure, Palpitations Respiratory: denies: Dyspnea, Cough GI: reports: Nausea. denies: Vomiting, Diarrhea, Hematemesis, Bloody / black stool : reports: Dysuria, Now EGA (2-3 weeks). 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 : None HEENT: None Psych: Depression, Anxiety, ADD/ADHD Musculoskeletal: None Derm: None - Past Surgical History Past Surgical History: Yes HEENT: Tonsil/Adenoidectomy - Present Medications Home Medications: Ambulatory Orders Medication Instructions Recorded Confirmed cephALEXin [Keflex] 500 mg PO Q6H #20 cap 03/18/23 - Allergies Allergies/Adverse Reactions: Allergies Allergy/AdvReac Type Severity Reaction Status Date / Time codeine [Codeine] Allergy throat Verified 03/18/23 12:05 swelling - Social History Does the pt smoke?: Yes Smoking Status: Current every day smoker Does the pt drink ETOH?: No Does the pt have substance abuse?: Yes - Immunizations Immunizations are current?: Yes - POLST Patient has POLST: No PD ED PE NORMAL - Vitals Vital signs reviewed: Yes - General General: Alert and oriented X 3, No acute distress - HEENT HEENT: PERRL, Moist mucous membranes - Neck Neck: Supple, no meningeal sign - Cardiac Cardiac: RRR, Strong equal pulses - Respiratory Respiratory: No respiratory distress, Clear bilaterally - Abdomen Abdomen: Soft, Non tender, Non distended - Back Back: No CVA TTP, No spinal TTP - Derm Derm: Warm and dry - Extremities Extremities: No edema, No calf tenderness / cord - Neuro Neuro: Alert and oriented X 3 - Psych Psych: Normal mood, Normal affect Results - Vitals Vitals: Vital Signs - 24 hr 03/18/23 11:58 Temperature 37.1 C Heart Rate 72 Respiratory 18 Rate Blood Pressure 126/60 O2 Saturation 99 Oxygen O2 Source Room air - Labs Labs: Laboratory Tests 03/18/23 03/18/23 03/18/23 12:11 12:31 12:31 WBC 6.2 RBC 4.44 Hgb 13.3 Hct 39.9 MCV 89.9 MCH 30.0 MCHC 33.3 RDW 12.9 Plt Count 266 MPV 9.0 Neut # (Auto) 4.2 Lymph # (Auto) 1.5 [place] # (Auto) 0.4 Eos # (Auto) 0.1 Baso # (Auto) 0.0 Absolute Nucleated RBC 0.00 Nucleated RBC % 0.0 Sodium 137 Potassium 3.8 Chloride 105 Carbon Dioxide 25 Anion Gap 7.0 BUN 7 Creatinine 0.6 Estimated GFR (MDRD) 123 Glucose 87 Calcium 9.5 Total Bilirubin 0.7 AST 12 ALT 11 Alkaline Phosphatase 44 Total Protein 6.7 Albumin 4.8 Globulin 1.9 L Albumin/Globulin Ratio 2.5 H Lipase 12 Beta HCG, Quant 256.7 Urine Color LT. YELLOW Urine Clarity CLEAR Urine pH 6.5 Ur Specific [place] <=1.005 Urine Protein NEGATIVE Urine Glucose (UA) NEGATIVE Urine Ketones NEGATIVE Urine Occult Blood NEGATIVE Urine Nitrite NEGATIVE Urine Bilirubin NEGATIVE Urine Urobilinogen 0.2 (NORMAL) Ur Leukocyte Esterase TRACE H Urine RBC None Seen Urine WBC 4-5 Ur Squamous Epith Cells FEW Squamous Urine Bacteria Rare Ur Microscopic Review INDICATED Urine Culture Comments INDICATED - Rads (name of study) pelvic US Relevant Findings:: Final report received, See rad report PD Medical Decision Making - ED course Complexity details: reviewed results, re-evaluated patient, considered differential, d/w patient ED course: 23-year-old female with urinalysis consistent with UTI, we will place on antibiotics for this. Her hCG is positive, 256. Ultrasound shows a right-sided corpus luteum cyst, no evidence of ectopic . Ectopic precautions given at bedside. Patient is not having any pain here. We will have her follow-up with her doctor/OB for further care. No emergency medical condition at this time. Patient counseled regarding signs and symptoms for which I believe and urgent re-evaluation would be necessary. Patient with good understanding of and agreement to plan and is comfortable going home at this time This document was made in part using voice recognition software. While efforts are made to proofread this document, sound alike and grammatical errors may occur. Departure - Departure Disposition: Home, Self Care Clinical Impression: Early stage of UTI (urinary tract infection) Qualifiers: Urinary tract infection type: acute cystitis Hematuria presence: without hematuria Qualified Code(s): N30.00 - Acute cystitis without hematuria Condition: Good Instructions: ED Care, ED UTI Cystitis Female Follow-Up: your,doctor in 1 week [Other] Prescriptions: cephALEXin [Keflex] 500 mg PO Q6H #20 cap Comments: Your prescription was sent to [facility] in [place]. Please take all antibiotics until gone. Please follow-up with your doctor for further care. You do have a positive test today, you are likely very early in your . Your ultrasound does not show a yet. If you are pelvic pain worsens, you develop bleeding or other new or worrisome symptoms, please return for evaluation. You should also start on a vitamin. You should also start on a vitamin. Forms: PCP List Discharge Date/Time: 03/18/23 13:45
--- NOTE | 2023-03-18 13:42 | Ultrasound Report ---
PROCEDURE: OB First Trimester w/TV INDICATIONS: pelvic pain, + preg OUTSIDE/PRIOR DATING DATA: Last menstrual period (LMP): : 02/12/2023 LMP-based estimated date of delivery (SORAYA): 11/19/2023. First dating scan (date and location): 03/18/2023. Estimated date of delivery (SORAYA) from first dating scan: Not applicable. TECHNIQUE: Real-time scanning was performed of the fetus and maternal pelvic organs, with image documentation. Endovaginal scanning was also performed to better visualize the fetus and maternal ovaries. COMPARISON: None. FINDINGS: No intrauterine gestational sac is seen. No pole or cardiac activity is identi fied. Maternal organs: Ovaries appear within normal limits. Corpus luteal cyst is seen in right ovary and measures 1.7 x 1.4 x 2.6 cm in size. IMPRESSION: 1. No evidence of intrauterine gestation. No pole or cardiac activity is detected. Follow -up with serial beta hCG level is recommended for evaluation of viability. 2. Corpus luteal cyst in right ovary as above. Reviewed by: Jeff Rosa MD on 03/18/2023 1:40 PM PDT Approved by: Jeff Rosa MD on 03/18/2023 1:40 PM PDT Station ID: [id number]
== END 2023-03-18 13:45 | disposition home or self-care (01) ==
LOC: ED 11:49
DX: O23.11 Infections of bladder in pregnancy, first trimester (principal); N30.00 Acute cystitis without hematuria; O34.81 Maternal care for other abnormalities of pelvic organs, first trimester; N83.11 Corpus luteum cyst of right ovary; O99.331 Smoking (tobacco) complicating pregnancy, first trimester; Z3A.00 Weeks of gestation of pregnancy not specified
CPT/HCPCS: 36415; 80053; 81001; 81003; 83690; 84702; 85025; 87086; 99283; 99284

== ENCOUNTER 2023-04-07 08:00 | Outpatient (CLI) | payer MEDICARE, MEDICAID ==
[2023-04-07 16:42] LABS: BILIRUBIN,URINE NEGATIVE (NEGATIVE); GLUCOSE, URINE (UA) NEGATIVE (NEGATIVE); KETONES,URINE (UA) >=80 mg/dL (NEGATIVE); LEUKOCYTE ESTERASE, URINE NEGATIVE (NEGATIVE); NITRITE,URINE NEGATIVE (NEGATIVE); OCCULT BLOOD,URINE NEGATIVE (NEGATIVE); PROTEIN,URINE 30 mg/dL (NEGATIVE); UROBILINOGEN,URINE 0.2 (NORMAL) E.U./dL (NORMAL)
[2023-04-07 16:50] LABS: CLARITY,URINE HAZY (CLEAR)
[2023-04-07 17:00] LABS: AMORPHOUS SEDIMENT,UR Marked /LPF; BACTERIA,URINE Few /HPF (None Seen); RBC,URINE 0-5 /HPF (0-5); SQUAMOUS EPITHELIAL CELL,UR MOD Squamous (<= Few)
[2023-04-07 20:27] LABS: BACTERIAL VAGINOSIS DNA NEGATIVE (NEGATIVE); CANDIDA GLABRATA DNA NEGATIVE (NEGATIVE); CANDIDA GROUP DNA NEGATIVE (NEGATIVE); CANDIDA KRUSEI DNA NEGATIVE (NEGATIVE); TRICHOMONAS VAGINALIS DNA NEGATIVE (NEGATIVE)
== END 2023-04-07 23:59 | disposition home or self-care (01) ==
LOC: LAB.WC 08:00
PROVIDERS: ATTEND Nurse Practitioner
DX: R30.0 Dysuria (principal); L29.8 Other pruritus
CPT/HCPCS: 81001; 81514; 87086

== ENCOUNTER 2023-04-13 16:16 | Outpatient (CLI) | payer MEDICARE, MEDICAID, OTHER ==
[2023-04-13 16:20] LABS: BILIRUBIN,URINE NEGATIVE (NEGATIVE); GLUCOSE, URINE (UA) NEGATIVE (NEGATIVE); KETONES,URINE (UA) >=80 mg/dL (NEGATIVE); LEUKOCYTE ESTERASE, URINE TRACE (NEGATIVE); NITRITE,URINE NEGATIVE (NEGATIVE); OCCULT BLOOD,URINE NEGATIVE (NEGATIVE); PROTEIN,URINE NEGATIVE (NEGATIVE); UROBILINOGEN,URINE 0.2 (NORMAL) E.U./dL (NORMAL)
[2023-04-13 16:25] LABS: CLARITY,URINE CLOUDY (CLEAR)
[2023-04-13 16:38] LABS: RBC,URINE 0-5 /HPF (0-5); WBC,URINE 0-3 /HPF (0-5)
[2023-04-13 16:39] LABS: AMORPHOUS SEDIMENT,UR Marked /LPF; BACTERIA,URINE Rare /HPF (None Seen); SQUAMOUS EPITHELIAL CELL,UR RARE Squamous (<= Few)
[2023-04-13 16:55] LABS: CREATININE,URINE 231.7 mg/dL; PROTEIN/CREATININE RATIO,URINE 0.1 (<=0.2)
[2023-04-13 21:04] LABS: CHLAMYDIA TRACHOMATIS DNA NEGATIVE (NEGATIVE); NEISSERIA GONORRHOEAE DNA NEGATIVE (NEGATIVE); TRICHOMONAS VAGINALIS DNA NEGATIVE (NEGATIVE)
== END 2023-04-13 16:17 | disposition home or self-care (01) ==
LOC: LAB.WC 16:16
PROVIDERS: ATTEND Nurse Practitioner
DX: O99.891 Other specified diseases and conditions complicating pregnancy (principal); R80.9 Proteinuria, unspecified
CPT/HCPCS: 81001; 82570; 84156; 87086; 87491; 87591; 87661

== ENCOUNTER 2023-04-21 08:00 | Outpatient (CLI) | payer MEDICARE, MEDICAID | END 2023-04-21 23:59 | disposition home or self-care (01) | LOC: LAB.S 08:00 | PROVIDERS: ATTEND Nurse Practitioner | DX: R10.9 Unspecified abdominal pain (principal) | CPT/HCPCS: 87086 ==

== ENCOUNTER 2023-04-24 10:37 | Emergency (ER) | payer MEDICARE, MEDICAID ==
[2023-04-24 10:54] VITALS: O2SAT 100
[2023-04-24 11:20] LABS: BILIRUBIN,URINE NEGATIVE (NEGATIVE); GLUCOSE, URINE (UA) NEGATIVE (NEGATIVE); KETONES,URINE (UA) NEGATIVE (NEGATIVE); LEUKOCYTE ESTERASE, URINE NEGATIVE (NEGATIVE); NITRITE,URINE NEGATIVE (NEGATIVE); OCCULT BLOOD,URINE NEGATIVE (NEGATIVE); PROTEIN,URINE NEGATIVE (NEGATIVE); UROBILINOGEN,URINE 0.2 (NORMAL) E.U./dL (NORMAL)
[2023-04-24 11:22] LABS: CLARITY,URINE CLEAR (CLEAR); HCG UR QUAL POSITIVE
[2023-04-24 12:24] LABS: BASOPHILS % (AUTO) 0.4 %; EOSINOPHILS # (AUTO) 0.1 10^3/uL (0.0-0.7); EOSINOPHILS % (AUTO) 1.6 %; HGB - HEMOGLOBIN 12.5 g/dL (12.0-16.0); LYMPHOCYTES # (AUTO) 1.3 10^3/uL (1.5-3.5); LYMPHOCYTES % (AUTO) 23.4 %; MEAN CORPUSCULAR HEMOGLOBIN 29.9 pg (27.0-31.0); MEAN CORPUSCULAR HGB CONC 32.9 g/dL (32.0-36.0); MEAN CORPUSCULAR VOLUME 90.9 fL (81.0-99.0); MEAN PLATELET VOLUME 9.3 fL (7.9-10.8); MONOCYTES # (AUTO) 0.4 10^3/uL (0.0-1.0); NEUTROPHILS # (AUTO) 3.6 10^3/uL (1.5-6.6); NEUTROPHILS % (AUTO) 66.4 %; PLT - PLATELET COUNT 247 10^3/uL (130-450); RED BLOOD COUNT 4.18 10^6/uL (4.20-5.40); RED CELL DISTRIBUTION WIDTH 12.4 % (12.0-15.0); WHITE BLOOD COUNT 5.5 x10^3/uL (4.8-10.8)
[2023-04-24 12:39] LABS: ALBUMIN 4.4 g/dL (3.2-5.5); ALBUMIN/GLOBULIN RATIO 2.2 (1.0-2.2); BILIRUBIN,TOTAL 0.3 mg/dL (0.2-1.0); CALCIUM 9.6 mg/dL (8.5-10.3); CREATININE 0.4 mg/dL (0.6-1.3); POTASSIUM 3.7 mmol/L (3.5-4.5); TOTAL PROTEIN 6.4 g/dL (6.4-8.9)
--- NOTE | 2023-04-24 13:05 | ED Physician Documentation ---
PD HPI BACK PAIN - Stated complaint Stated Complaint: BACK PX,,N/V - Chief complaint Chief Complaint: Back Pain - History obtained from History obtained from: Patient, Family - History of Present Illness Timing - onset: How many weeks ago (1) Timing - duration: Weeks (1) Timing - details: Gradual onset, Still present Location: Mid, Right, Left Quality: Pain, Spasm, Sharp Associated symptoms: No: Fever, Weakness, Numbness, Incontinent of urine, Unable to urinate, Hematuria, Incontinent of stool Improves with: Rest Worsened by: Movement, Twisting, Palpation Similar symptoms before: Diagnosis (kidney infection) Recently seen: Emergency Dept - Additional information Additional information: Quin Pineda is a 23-year-old primigravida who was seen in the emergency department 1 month ago for the diagnosis of her which had been causing some left-sided pelvic pain. a urinalysis was concerning for infection and she was given kelex. At that time she had ultrasound done had a quantitative hCG of 256 and was diagnosed with early . She has had a follow-up with OB a formal ultrasound was performed showing a viable fetus. The patient is now complaining of pain with urination and back pain. 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 She notes that she has dark urine and pain with urination. She has 3 urine cultures showing contamination. Review of Systems Constitutional: denies: Fever, Chills Eyes: denies: Decreased vision Ears: denies: Ear pain Nose: denies: Congestion Throat: denies: Sore throat Cardiac: denies: Chest pain / pressure, Palpitations Respiratory: denies: Dyspnea, Cough GI: reports: Abdominal Pain, Nausea, Vomiting. denies: Constipation, Diarrhea : reports: Dysuria. denies: Hematuria, Discharge Musculoskeletal: reports: Back pain. 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 : None HEENT: None Psych: Depression, Anxiety, ADD/ADHD Musculoskeletal: None Derm: None - Past Surgical History Past Surgical History: Yes HEENT: Tonsil/Adenoidectomy - Present Medications Home Medications: Ambulatory Orders Medication Instructions Recorded Confirmed cephALEXin [Keflex] 500 mg PO Q6H #20 cap 03/18/23 - Allergies Allergies/Adverse Reactions: Allergies Allergy/AdvReac Type Severity Reaction Status Date / Time codeine [Codeine] Allergy throat Verified 04/24/23 10:48 swelling - Social History Does the pt smoke?: No Smoking Status: Never smoker Does the pt drink ETOH?: No Does the pt have substance abuse?: Yes Substance Use and Type: CBD oil / Products - Immunizations Immunizations are current?: No - POLST Patient has POLST: No PD ED PE NORMAL - Vitals Vital signs reviewed: Yes (hypertnsive mild ) - General General: Alert and oriented X 3, No acute distress, Well developed/nourished - HEENT HEENT: Atraumatic, PERRL, EOMI - Neck Neck: Supple, no meningeal sign, No bony TTP - Cardiac Cardiac: RRR, No murmur - Respiratory Respiratory: No respiratory distress, Clear bilaterally - Abdomen Abdomen: Normal bowel sounds, Soft, Non tender, Non distended, No organomegaly - Back Back: No CVA TTP, No spinal TTP - Derm Derm: Normal color, Warm and dry, No rash - Extremities Extremities: No deformity, No edema - Neuro Neuro: Alert and oriented X 3, credentialing specialist 2-12 intact, No motor deficit, No sensory deficit, Normal speech Eye Opening: Spontaneous Motor: Obeys Commands Verbal: Oriented GCS Score: 15 - Psych Psych: Normal mood, Normal affect Results - Vitals Vitals: Vital Signs - 24 hr 04/24/23 10:42 Temperature 36.8 C Heart Rate 80 Respiratory 16 Rate Blood Pressure 128/83 H O2 Saturation 100 Oxygen O2 Source Room air - Labs Labs: Laboratory Tests 04/24/23 04/24/23 04/24/23 11:15 12:20 12:20 WBC 5.5 RBC 4.18 L Hgb 12.5 Hct 38.0 MCV 90.9 MCH 29.9 MCHC 32.9 RDW 12.4 Plt Count 247 MPV 9.3 Neut # (Auto) 3.6 Lymph # (Auto) 1.3 L [place] # (Auto) 0.4 Eos # (Auto) 0.1 Baso # (Auto) 0.0 Absolute Nucleated RBC 0.00 Nucleated RBC % 0.0 Sodium 136 Potassium 3.7 Chloride 104 Carbon Dioxide 27 Anion Gap 5.0 L BUN 10 Creatinine 0.4 L Estimated GFR (MDRD) 196 Glucose 74 Calcium 9.6 Total Bilirubin 0.3 AST 11 ALT 10 Alkaline Phosphatase 36 L Total Protein 6.4 Albumin 4.4 Globulin 2.0 L Albumin/Globulin Ratio 2.2 Lipase 42 Urine Color YELLOW Urine Clarity CLEAR Urine pH 7.0 Ur Specific [place] 1.020 Urine Protein NEGATIVE Urine Glucose (UA) NEGATIVE Urine Ketones NEGATIVE Urine Occult Blood NEGATIVE Urine Nitrite NEGATIVE Urine Bilirubin NEGATIVE Urine Urobilinogen 0.2 (NORMAL) Ur Leukocyte Esterase NEGATIVE Ur Microscopic Review NOT INDICATED Urine Culture Comments NOT INDICATED Urine HCG, Qual POSITIVE Procedures - Bedside sono Bedside sono by EMP: With use of bedside ultrasound the pelvis is imaged there is a fetus inside of the uterus with a heartbeat. - IVC sono (time) 1220 Bedside IVC sono: IVC measures (cm) (1.43), Euvolemia PD Medical Decision Making - ED course Complexity details: reviewed old records, reviewed results, re-evaluated patient, considered differential, d/w patient, d/w family ED course: 23-year-old female presents to the emergency department with dark-colored urine that orellana when she urinates and back pain. I evaluated the patient found that she did have some tenderness to her back and she had a entirely normal-appearing urinalysis. I considered dehydration a potential cause for her burning with urination and dark urine and I interrogated her IVC with POCUS the found she was euvolemic. At that point I ordered additional blood work for further e valuation found this was also a normal study. I did use POCUS to evaluate the pelvis and found an expanding uterus right behind the bladder.I believe the patient may be experiencing some bladder irritation from her developing and I have asked her to follow-up with her BACK CLOSER doctor as we are not finding a treatable condition for her symptoms. Departure - Departure Disposition: 01 Home, Self Care Clinical Impression: Early stage of Condition: Stable Instructions: Preg Back Pain, Preg Common Questions Follow-Up: Paula Marie ARNP [Primary Care Provider] - Mita Mac ARNP [Provider Admit Priv/Credential] - Comments: Quin, today we did not find any abnormalities to your laboratory evaluations and we did see that it looks like the expanding uterus is compressing the bladder. This may explain some of your bladder symptoms. Follow-up with your BACK CLOSER doctor this week if you have worsening or persistence of your symptoms.
[2023-04-24 13:50] VITALS: BP 124/80
== END 2023-04-24 13:42 | disposition home or self-care (01) ==
LOC: ED 10:37
DX: O99.891 Other specified diseases and conditions complicating pregnancy (principal); M54.6 Pain in thoracic spine; R30.0 Dysuria; Z3A.00 Weeks of gestation of pregnancy not specified
CPT/HCPCS: 36415; 80053; 81001; 81003; 81025; 83690; 85025; 87086; 99283

== ENCOUNTER 2023-04-28 11:02 | Outpatient (CLI) | payer MEDICARE, MEDICAID ==
[2023-04-28 15:34] LABS: ALBUMIN 4.6 g/dL (3.2-5.5); ALBUMIN/GLOBULIN RATIO 2.3 (1.0-2.2); BILIRUBIN,TOTAL 0.4 mg/dL (0.2-1.0); CALCIUM 9.7 mg/dL (8.5-10.3); CREATININE 0.4 mg/dL (0.6-1.3); TOTAL PROTEIN 6.6 g/dL (6.4-8.9)
== END 2023-04-28 11:03 | disposition home or self-care (01) ==
LOC: LAB.S 11:02
PROVIDERS: ATTEND Nurse Practitioner
DX: Z87.19 Personal history of other diseases of the digestive system (principal)
CPT/HCPCS: 36415; 80053

== ENCOUNTER 2023-05-10 20:08 | Outpatient (CLI) | payer MEDICARE, MEDICAID ==
--- NOTE | 2023-05-11 11:22 | Ultrasound Report ---
PROCEDURE: OB First Trimester INDICATIONS: POSITIVE TEST OUTSIDE/PRIOR DATING DATA: Last menstrual period (LMP): Unsure. First dating scan (date and location): 05/10/2023. Estimated date of delivery (SORAYA) from first dating scan: 11/20/2023. TECHNIQUE: Real-time scanning was performed of the fetus and maternal pelvic organs, with image documentation. COMPARISON: 03/18/2023 FINDINGS: Intrauterine is seen with heart rate 160 bpm. [place]-rump length is 5.77 cm corre sponding to an ultrasound age of 12 weeks and 2 days. Unremarkable appearing adnexal structures. IMPRESSION: Living intrauterine at an ultrasound age of 12 weeks and 2 days. Reviewed by: Deni Amador MD on 05/11/2023 11:21 AM PST Approved by: Deni Amador MD on 05/11/2023 11:21 AM PST Station ID: [id number]
== END 2023-05-10 20:09 | disposition home or self-care (01) ==
LOC: DI 20:08
PROVIDERS: ATTEND Nurse Practitioner
DX: Z34.91 Encounter for supervision of normal pregnancy, unspecified, first trimester (principal)

== ENCOUNTER 2023-05-12 08:00 | Outpatient (CLI) | payer MEDICARE, MEDICAID ==
[2023-05-12 21:03] LABS: CHLAMYDIA TRACHOMATIS DNA NEGATIVE (NEGATIVE); NEISSERIA GONORRHOEAE DNA NEGATIVE (NEGATIVE); TRICHOMONAS VAGINALIS DNA NEGATIVE (NEGATIVE)
== END 2023-05-12 23:59 | disposition home or self-care (01) ==
LOC: LAB.WC 08:00
PROVIDERS: ATTEND Obstetrics & Gynecology
DX: O99.891 Other specified diseases and conditions complicating pregnancy (principal); R80.9 Proteinuria, unspecified; Z83.49 Family history of other endocrine, nutritional and metabolic diseases; Z11.3 Encounter for screening for infections with a predominantly sexual mode of transmission
CPT/HCPCS: 36415; 80053; 84436; 84443; 84480; 85025; 86592; 86762; 86787; 86803; 86850; 86900; 86901; 87340; 87491; 87591; 87661; G0475; 87389

== ENCOUNTER 2023-05-12 12:13 | Outpatient (CLI) | payer MEDICARE, MEDICAID ==
[2023-05-12 12:32] LABS: BASOPHILS % (AUTO) 0.2 %; EOSINOPHILS % (AUTO) 0.8 %; HCT - HEMATOCRIT 34.9 % (37.0-47.0); HGB - HEMOGLOBIN 11.8 g/dL (12.0-16.0); LYMPHOCYTES # (AUTO) 1.2 10^3/uL (1.5-3.5); LYMPHOCYTES % (AUTO) 26.3 %; MEAN CORPUSCULAR HEMOGLOBIN 29.9 pg (27.0-31.0); MEAN CORPUSCULAR HGB CONC 33.8 g/dL (32.0-36.0); MEAN CORPUSCULAR VOLUME 88.4 fL (81.0-99.0); MEAN PLATELET VOLUME 8.9 fL (7.9-10.8); MONOCYTES # (AUTO) 0.2 10^3/uL (0.0-1.0); NEUTROPHILS # (AUTO) 3.2 10^3/uL (1.5-6.6); NEUTROPHILS % (AUTO) 68.5 %; PLT - PLATELET COUNT 258 10^3/uL (130-450); RED BLOOD COUNT 3.95 10^6/uL (4.20-5.40); RED CELL DISTRIBUTION WIDTH 12.5 % (12.0-15.0); WHITE BLOOD COUNT 4.7 x10^3/uL (4.8-10.8)
[2023-05-12 12:48] LABS: ALBUMIN 4.2 g/dL (3.2-5.5); ALBUMIN/GLOBULIN RATIO 1.8 (1.0-2.2); BILIRUBIN,TOTAL 0.2 mg/dL (0.2-1.0); CALCIUM 9.2 mg/dL (8.5-10.3); CREATININE 0.5 mg/dL (0.6-1.3); POTASSIUM 3.7 mmol/L (3.5-4.5); TOTAL PROTEIN 6.6 g/dL (6.4-8.9)
[2023-05-12 13:02] LABS: THYROID STIMULATING HORMONE 0.51 uIU/mL (0.34-5.60)
[2023-05-13 03:10] LABS: HCV AB Non Reactive (Non Reactive)
[2023-05-13 06:08] LABS: HIV SCREEN 4TH GENERATION Non Reactive (Non Reactive)
[2023-05-13 10:09] LABS: RPR Non Reactive (Non Reactive)
[2023-05-13 12:09] LABS: VARICELLA-ZOSTER AB IGG 1203 index (Immune >165)
[2023-05-13 19:08] LABS: HBsAG SCREEN Negative (Negative)
== END 2023-05-12 12:14 | disposition home or self-care (01) ==
LOC: LAB 12:13
PROVIDERS: ATTEND Obstetrics & Gynecology
DX: O99.891 Other specified diseases and conditions complicating pregnancy (principal); R80.9 Proteinuria, unspecified; Z83.49 Family history of other endocrine, nutritional and metabolic diseases
CPT/HCPCS: 36415; 80053; 84436; 84443; 84480; 85025; 86592; 86762; 86787; 86803; 86850; 86900; 86901; 87340; G0475; 87389

== ENCOUNTER 2023-06-24 17:32 | Emergency (ER) | payer MEDICARE, MEDICAID ==
[2023-06-24 17:50] VITALS: BP 122/61; O2SAT 100
[2023-06-24] MEDS ORDERED: AMOX/CLAV 875 MG/125 MG TABLET PO STA (18:45)
--- NOTE | 2023-06-24 18:48 | ED Physician Documentation ---
History of Present Illness - Stated complaint Stated Complaint: DOG BITE - Chief complaint Chief Complaint: Laceration - History obtained from History obtained from: Patient - History of Present Illness Timing: Today Pain level max: 3 Pain level now: 3 - Additonal information Additional information: 23-year-old female, approximately 18 weeks presents to the emergency department after she was walking at [place] today when she was bit by a dog. Has broken skin on the right flank. Has bruising to the left elbow and right knee. She states she was not struck in the abdomen. Has no pelvic pain or cramping. No vaginal bleeding. Tetanus is up-to-date. No head, neck, back pain. No other injuries. Unknown whose dog it was. She did complete a series of rabies vaccination in 2021 Review of Systems Constitutional: denies: Fever, Chills Respiratory: denies: Cough GI: denies: Abdominal Pain, Vomiting, Diarrhea : reports: Now EGA (18 weeks). 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: None Psych: Depression, Anxiety, ADD/ADHD Musculoskeletal: None Derm: None - Past Surgical History Past Surgical History: Yes HEENT: Tonsil/Adenoidectomy - Present Medications Home Medications: Ambulatory Orders Medication Instructions Recorded Confirmed Amox/Clav 875/125 [Augmentin] 1 tab PO Q12H #14 tablet 06/24/23 - Allergies Allergies/Adverse Reactions: Allergies Allergy/AdvReac Type Severity Reaction Status Date / Time codeine [Codeine] Allergy throat Verified 06/24/23 17:46 swelling - Social History Does the pt smoke?: No Smoking Status: Never smoker Does the pt drink ETOH?: No Does the pt have substance abuse?: Yes - Immunizations Immunizations are current?: No - POLST Patient has POLST: No PD ED PE NORMAL - Vitals Vital signs reviewed: Yes - General General: Alert and oriented X 3, No acute distress - HEENT HEENT: Atraumatic, PERRL, Moist mucous membranes - Neck Neck: Supple, no meningeal sign, No bony TTP, C-Spine cleared by NEXUS criteria - Cardiac Cardiac: RRR - Respiratory Respiratory: No respiratory distress, Clear bilaterally - Abdomen Abdomen: Soft, Non tender, Non distended, Other (Dog bite to the right flank, there is approximately a 3 cm linear abrasion/skin avulsion, 2 mm wide. Not gaping. Not deep. Not actively bleeding.) - Back Back: No CVA TTP, No spinal TTP - Derm Derm: Warm and dry - Extremities Extremities: Other (small bruise of the L elbow and R knee. no abrasion.) - Neuro Neuro: Alert and oriented X 3 - Psych Psych: Normal mood, Normal affect Results - Vitals Vitals: Vital Signs - 24 hr 06/24/23 06/24/23 17:39 18:57 Temperature 36.6 C Heart Rate 83 Respiratory 17 16 Rate Blood Pressure 122/61 O2 Saturation 100 Oxygen O2 Source Room air PD Medical Decision Making - ED course Complexity details: considered differential, d/w patient ED course: 23-year-old female, 18 weeks , no abdominal pain, pelvic pain, vaginal bleeding. She has a small abrasion/skin avulsion on the right flank. No indication for suture repair. Very superficial. Wounds were cleansed and bandaged. Will place on Augmentin for home. Tetanus shot up-to-date. Patient is adamant that her stomach was not hit and states that it she did not fall or injure her stomach in any way. Wound care instructions given at bedside. Patient counseled regarding signs and symptoms for which I believe and urgent re- evaluation would be necessary. Patient with good understanding of and agreement to plan and is comfortable going home at this time This document was made in part using voice recognition software. While efforts are made to proofread this document, sound alike and grammatical errors may occur. Departure - Departure Disposition: Home, Self Care Clinical Impression: Dog bite of abdomen Condition: Good Instructions: ED Bite Dog Follow-Up: your,doctor in 1 week for wound check [Other] Prescriptions: Amox/Clav 875/125 [Augmentin] 1 tab PO Q12H #14 tablet Comments: Your prescription was sent to [facility] in [place]. Please take all antibiotics until gone. Please return if you worsen. Return if you notice redness, swelling or drainage from the wound. Also return if you develop abdominal pain, cramping, vaginal bleeding or other new or worrisome symptoms. The wound will heal on its own, please keep the wound covered until there is a scab over it. Forms: PCP List Discharge Date/Time: 06/24/23 18:58
== END 2023-06-24 18:58 | disposition home or self-care (01) ==
LOC: ED 17:32
DX: O9A.212 Injury, poisoning and certain other consequences of external causes complicating pregnancy, second trimester (principal); S31.150A Open bite of abdominal wall, right upper quadrant without penetration into peritoneal cavity, initial encounter; W54.0XXA Bitten by dog, initial encounter; Z3A.18 18 weeks gestation of pregnancy
CPT/HCPCS: 99282; 99283; A9270

== ENCOUNTER 2023-07-16 16:14 | Outpatient (CLI) | payer MEDICARE, MEDICAID ==
--- NOTE | 2023-07-17 13:00 | Ultrasound Report ---
PROCEDURE: OB Anatomy Scan INDICATIONS: SUPERVISION OF OUTSIDE/PRIOR DATING DATA: Last menstrual period (LMP): Unknown. LMP-based estimated date of delivery (SORAYA): Not available. First dating scan (date and location): 05/10/2023. Estimated date of delivery (SORAYA) from first dating scan: 11/20/2023. TECHNIQUE: Real-time scanning was performed of the fetus, with image documentation and biometric measurements. Endovaginal scanning: Not performed. COMPARISON: 05/10/2023, 03/18/2023 FINDINGS: General: A single living intrauterine gestation is present. Presentation: Breech Placenta: Placental position is posterior. The edge of the placenta is 1.4 cm from the internal os. Amniotic fluid index: 1.4 cm, within normal limits for gestational age. heart rate: 145 beats per minute. Maternal cervical canal: 3.1 cm long; normal length is 2.5 cm or more. biometrics: Biparietal diameter: 4.9 cm, 20 weeks 5 days, 22.5% Head circumference: 18.7 cm, 21 weeks 0 days, 23.5% Abdominal circumference: 18.1 cm, 23 weeks 0 days, 86.8% Femur length: 3.6 cm, 21 weeks 3 days, 38.3% Estimated gestational age from initial scan: 21 weeks 3 days Composite gestational age from present scan: 21 weeks 3 days Estimated weight and percentile: 473 g, 77.7% Measurement variability in biometric dating: +/- 10 days from 12-20 weeks gestation, +/- 2 weeks from 20-30 weeks gestation, +/- 3 weeks at 30 weeks gestation or later. Anatomic survey: Neuro: Ventricles are normal at less than 10 mm. Cisterna magna is normal at 3-11 mm. Cerebellum i s normal in size and morphology. Nuchal skin fold: Normal at less than 6 mm between 14 and 20 weeks gestational age. Face: Not visualized Spine: No evidence for spina bifida. Heart: Four-chamber heart and left ventricular outflow track within normal limits. The RVOT is not vi sualized Diaphragm: Diaphragm is intact. Stomach: Left-sided stomach is present. Kidneys: No hydronephrosis. Normal is less than 5 mm in 2nd trimester, less than 7 mm in 3rd trimester. Cord: 3 vessel cord has orthotopic insertion. Bladder: Normal in size. Extremities: All 4 extremities are visualized. IMPRESSION: 1. Single live uterine gestation with a gestational age of 21 weeks 3 days which is concordant with d ates by initial scan. 2. Facial profile, nose and lips, and RVOT not well characterized. Short interval follow-up recommend ed. 3. Marginal placenta previa. The margin of the placenta is 1.4 cm from the cervical os. Sonographic f ollow-up recommended. Reviewed by: Vesna Roberts MD on 07/17/2023 12:59 PM PST Approved by: Vesna Roberts MD on 07/17/2023 12:59 PM PST Station ID: [id number]
== END 2023-07-16 16:15 | disposition home or self-care (01) ==
LOC: DI 16:14
PROVIDERS: ATTEND Obstetrics & Gynecology
DX: O44.22 Partial placenta previa NOS or without hemorrhage, second trimester (principal); Z3A.21 21 weeks gestation of pregnancy

== ENCOUNTER 2023-07-20 08:00 | Outpatient (CLI) | payer MEDICARE, MEDICAID ==
[2023-07-20 16:26] LABS: BILIRUBIN,URINE NEGATIVE (NEGATIVE); GLUCOSE, URINE (UA) NEGATIVE (NEGATIVE); KETONES,URINE (UA) NEGATIVE (NEGATIVE); LEUKOCYTE ESTERASE, URINE NEGATIVE (NEGATIVE); NITRITE,URINE NEGATIVE (NEGATIVE); OCCULT BLOOD,URINE NEGATIVE (NEGATIVE); PROTEIN,URINE NEGATIVE (NEGATIVE); UROBILINOGEN,URINE 0.2 (NORMAL) E.U./dL (NORMAL)
[2023-07-20 16:28] LABS: CLARITY,URINE CLEAR (CLEAR)
[2023-07-20 16:40] LABS: WBC,URINE 0-3 /HPF (0-5)
[2023-07-20 16:41] LABS: BACTERIA,URINE Few /HPF (None Seen); RBC,URINE 0-5 /HPF (0-5); SQUAMOUS EPITHELIAL CELL,UR FEW Squamous (<= Few)
== END 2023-07-20 23:59 | disposition home or self-care (01) ==
LOC: LAB.WC 08:00
PROVIDERS: ATTEND Nurse Practitioner
DX: R30.0 Dysuria (principal)
CPT/HCPCS: 81001; 81002; 87086

== ENCOUNTER 2023-07-29 08:00 | Outpatient (CLI) | payer MEDICARE, MEDICAID ==
[2023-07-29 17:11] LABS: BILIRUBIN,URINE NEGATIVE (NEGATIVE); GLUCOSE, URINE (UA) NEGATIVE (NEGATIVE); KETONES,URINE (UA) TRACE mg/dL (NEGATIVE); LEUKOCYTE ESTERASE, URINE MODERATE (NEGATIVE); NITRITE,URINE NEGATIVE (NEGATIVE); OCCULT BLOOD,URINE NEGATIVE (NEGATIVE); PROTEIN,URINE NEGATIVE (NEGATIVE); UROBILINOGEN,URINE 0.2 (NORMAL) E.U./dL (NORMAL)
[2023-07-29 17:14] LABS: CLARITY,URINE HAZY (CLEAR)
[2023-07-29 17:21] LABS: CREATININE,URINE 63.6 mg/dL; PROTEIN/CREATININE RATIO,URINE 0.1 (<=0.2)
[2023-07-29 17:37] LABS: BACTERIA,URINE Moderate /HPF (None Seen); RBC,URINE 0-5 /HPF (0-5); SQUAMOUS EPITHELIAL CELL,UR MANY Squamous (<= Few)
[2023-07-29 23:34] LABS: CHLAMYDIA TRACHOMATIS DNA NEGATIVE (NEGATIVE); NEISSERIA GONORRHOEAE DNA NEGATIVE (NEGATIVE)
[2023-07-30 03:02] LABS: BACTERIAL VAGINOSIS DNA NEGATIVE (NEGATIVE); CANDIDA GLABRATA DNA NEGATIVE (NEGATIVE); CANDIDA GROUP DNA NEGATIVE (NEGATIVE); CANDIDA KRUSEI DNA NEGATIVE (NEGATIVE); TRICHOMONAS VAGINALIS DNA NEGATIVE (NEGATIVE)
== END 2023-07-29 23:59 | disposition home or self-care (01) ==
LOC: LAB.WC 08:00
PROVIDERS: ATTEND Nurse Practitioner
DX: R30.0 Dysuria (principal)
CPT/HCPCS: 81001; 81514; 82570; 84156; 87086; 87491; 87591; 87661

== ENCOUNTER 2023-08-05 16:04 | Outpatient (CLI) | payer MEDICARE, MEDICAID ==
[2023-08-05 16:43] VITALS: BP 109/53
[2023-08-05 18:03] LABS: BILIRUBIN,URINE NEGATIVE (NEGATIVE); CLARITY,URINE CLEAR (CLEAR); GLUCOSE, URINE (UA) NEGATIVE (NEGATIVE); KETONES,URINE (UA) NEGATIVE (NEGATIVE); LEUKOCYTE ESTERASE, URINE NEGATIVE (NEGATIVE); NITRITE,URINE NEGATIVE (NEGATIVE); OCCULT BLOOD,URINE NEGATIVE (NEGATIVE); PROTEIN,URINE NEGATIVE (NEGATIVE); UROBILINOGEN,URINE 0.2 (NORMAL) E.U./dL (NORMAL)
[2023-08-05 18:11] LABS: WBC,URINE 0-3 /HPF (0-5)
[2023-08-05 18:12] LABS: BACTERIA,URINE Few /HPF (None Seen); RBC,URINE None Seen /HPF (0-5); SQUAMOUS EPITHELIAL CELL,UR FEW Squamous (<= Few)
[2023-08-05 19:08] LABS: BACTERIAL VAGINOSIS DNA NEGATIVE (NEGATIVE); CANDIDA GLABRATA DNA NEGATIVE (NEGATIVE); CANDIDA GROUP DNA NEGATIVE (NEGATIVE); CANDIDA KRUSEI DNA NEGATIVE (NEGATIVE); TRICHOMONAS VAGINALIS DNA NEGATIVE (NEGATIVE)
[2023-08-05 20:44] LABS: CHLAMYDIA TRACHOMATIS DNA NEGATIVE (NEGATIVE); NEISSERIA GONORRHOEAE DNA NEGATIVE (NEGATIVE)
--- NOTE | 2023-08-25 18:08 | PROVIDER PROGRESS NOTE ---
- HPI Chief Complaint: Decreased movement Current : Vital Signs Temperature 98.2 F 08/05/23 16:33 Heart Rate 79 08/05/23 16:33 Respiratory Rate 16 08/05/23 16:33 Blood Pressure 109/53 L 08/05/23 16:33 Temperature 98.2 F 08/05/23 16:33 Heart Rate 79 08/05/23 16:33 Respiratory Rate 16 08/05/23 16:33 Blood Pressure 109/53 L 08/05/23 16:33 O2 Saturation If not protocol: Oxygen Flow, liters/minute Patient called with concerns of spotting and period type cramps since this morning. She states that the cramping pain comes and goes but cannot provide a frequency. She has had several episodes of pink/red spotting since this morning. Denies leaking any other fluid. Ginny states she has not felt her baby move all day, which is concerning to her. Encouraged patient to present to [facility] for further evaluation. Report given to [facility] and on-call provider. 24 weeks. - Exam appears well. - Procedures OB Procedure Performed: NST Diagnosis/Indication for NST: Decreased movement NST Procedure: Reactive for of 32 weeks gestation or more. NST tracing contains at least two heart rate accelerations that are at least 15 beats per minute above the baseline rate and lasting at least 15 seconds from onset to return to baseline within a twenty minute period. Findings: reactive nst. - Plan Plan: discharged home feeling better about baby's movements.
== END 2023-08-05 17:30 | disposition home or self-care (01) ==
LOC: WFO 16:04 → FBP 16:05 → WFO 17:30
PROVIDERS: ATTEND Obstetrics & Gynecology
DX: O36.8120 Decreased fetal movements, second trimester, not applicable or unspecified (principal); O99.891 Other specified diseases and conditions complicating pregnancy; N76.0 Acute vaginitis; Z3A.24 24 weeks gestation of pregnancy
CPT/HCPCS: 81001; 81514; 87491; 87591; G0463; 87661; 99213

== ENCOUNTER 2023-09-01 18:46 | Outpatient (CLI) | payer MEDICARE, MEDICAID ==
--- NOTE | 2023-09-02 16:58 | Ultrasound Report ---
PROCEDURE: OB Follow up INDICATIONS: SUPERVISION OF OUTSIDE/PRIOR DATING DATA: Last menstrual period (LMP): 02/16/2023. LMP-based estimated date of delivery (SORAYA): 11/23/2023. First dating scan (date and location): 05/10/2023. Estimated date of delivery (SORAYA) from first dating scan: 11/20/2023. The below data below was generated using the ultrasound SORAYA of 11/23/2023 TECHNIQUE: Real-time scanning was performed of the fetus, with image documentation and biometric measurements. Endovaginal scanning: Not performed. COMPARISON: OB ultrasound on July 16, 2023 FINDINGS: General: A single living intrauterine gestation is present. Presentation: Vertex Placenta: Placental position is posterior, without previa. Previously seen marginal placenta is no longer seen. Amniotic fluid index: 16.3 cm, within normal limits for gestational age. heart rate: 141 beats per minute. Maternal cervical canal: Not imaged biometrics: Estimated gestational age from initial scan: 28 weeks and 1 day Other: Bilateral ovaries are not well seen. Largest TOMY pocket is 4.9 cm. The nose/lips, facial profi le and RVOT are within normal limits. IMPRESSION: 1.Single living intrauterine gestation in vertex presentation. Gestational age from initial scan is 2 8 weeks and 1 day. 2.Facial profile, nose and lips and RVOT are within normal limits. 3.Previously seen marginal placenta previa is no longer seen. Attention on follow-up imaging. Reviewed by: Gale Mack MD on 09/02/2023 4:57 PM PDT Approved by: Gale Mack MD on 09/02/2023 4:57 PM PDT Station ID: [id number]
== END 2023-09-01 18:47 | disposition home or self-care (01) ==
LOC: DI 18:46
PROVIDERS: ATTEND Obstetrics & Gynecology
DX: Z34.93 Encounter for supervision of normal pregnancy, unspecified, third trimester (principal)

== ENCOUNTER 2023-09-22 08:00 | Outpatient (CLI) | payer MEDICARE, MEDICAID ==
[2023-09-22 15:51] LABS: BILIRUBIN,URINE NEGATIVE (NEGATIVE); GLUCOSE, URINE (UA) NEGATIVE (NEGATIVE); KETONES,URINE (UA) NEGATIVE (NEGATIVE); LEUKOCYTE ESTERASE, URINE TRACE (NEGATIVE); NITRITE,URINE NEGATIVE (NEGATIVE); OCCULT BLOOD,URINE NEGATIVE (NEGATIVE); PROTEIN,URINE NEGATIVE (NEGATIVE); UROBILINOGEN,URINE 0.2 (NORMAL) E.U./dL (NORMAL)
[2023-09-22 16:04] LABS: BACTERIA,URINE Rare /HPF (None Seen); CLARITY,URINE CLEAR (CLEAR); RBC,URINE None Seen /HPF (0-5); SQUAMOUS EPITHELIAL CELL,UR FEW Squamous (<= Few); WBC,URINE 0-3 /HPF (0-5)
== END 2023-09-22 23:59 | disposition home or self-care (01) ==
LOC: LAB.WC 08:00
PROVIDERS: ATTEND Obstetrics & Gynecology
DX: R30.0 Dysuria (principal)
CPT/HCPCS: 81001; 87086

== ENCOUNTER 2023-10-04 08:00 | Outpatient (CLI) | payer MEDICARE, MEDICAID ==
[2023-10-04 17:13] LABS: BILIRUBIN,URINE NEGATIVE (NEGATIVE); GLUCOSE, URINE (UA) NEGATIVE (NEGATIVE); KETONES,URINE (UA) NEGATIVE (NEGATIVE); LEUKOCYTE ESTERASE, URINE TRACE (NEGATIVE); NITRITE,URINE NEGATIVE (NEGATIVE); OCCULT BLOOD,URINE NEGATIVE (NEGATIVE); PROTEIN,URINE NEGATIVE (NEGATIVE); UROBILINOGEN,URINE 0.2 (NORMAL) E.U./dL (NORMAL)
[2023-10-04 17:31] LABS: BACTERIA,URINE Moderate /HPF (None Seen); CLARITY,URINE CLEAR (CLEAR); MUCUS,URINE Few Strands; RBC,URINE None Seen /HPF (0-5); SQUAMOUS EPITHELIAL CELL,UR FEW Squamous (<= Few); WBC,URINE 0-3 /HPF (0-5)
[2023-10-04 17:47] LABS: CREATININE,URINE 134.4 mg/dL; PROTEIN/CREATININE RATIO,URINE 0.1 (<=0.2)
== END 2023-10-04 23:59 | disposition home or self-care (01) ==
LOC: LAB.WC 08:00
PROVIDERS: ATTEND Obstetrics & Gynecology
DX: R10.11 Right upper quadrant pain (principal); R30.0 Dysuria
CPT/HCPCS: 81001; 82570; 84156; 87086

== ENCOUNTER 2023-10-05 09:39 | Outpatient (CLI) | payer MEDICARE, MEDICAID ==
[2023-10-05 09:56] LABS: HCT - HEMATOCRIT 33.8 % (37.0-47.0); HGB - HEMOGLOBIN 10.5 g/dL (12.0-16.0); MEAN CORPUSCULAR HEMOGLOBIN 27.1 pg (27.0-31.0); MEAN CORPUSCULAR HGB CONC 31.1 g/dL (32.0-36.0); MEAN CORPUSCULAR VOLUME 87.1 fL (81.0-99.0); MEAN PLATELET VOLUME 9.8 fL (7.9-10.8); RED BLOOD COUNT 3.88 10^6/uL (4.20-5.40); RED CELL DISTRIBUTION WIDTH 13.6 % (12.0-15.0); WHITE BLOOD COUNT 6.3 x10^3/uL (4.8-10.8)
[2023-10-05 10:16] LABS: ALBUMIN 3.5 g/dL (3.2-5.5); ALBUMIN/GLOBULIN RATIO 1.4 (1.0-2.2); BILIRUBIN,TOTAL 0.2 mg/dL (0.2-1.0); CALCIUM 9.1 mg/dL (8.5-10.3); CREATININE 0.5 mg/dL (0.6-1.3); POTASSIUM 4.1 mmol/L (3.5-4.5)
[2023-10-05 10:23] LABS: THYROID STIMULATING HORMONE 1.16 uIU/mL (0.34-5.60)
== END 2023-10-05 09:40 | disposition home or self-care (01) ==
LOC: LAB 09:39
PROVIDERS: ATTEND Obstetrics & Gynecology
DX: R10.11 Right upper quadrant pain (principal); G25.81 Restless legs syndrome; E04.1 Nontoxic single thyroid nodule
CPT/HCPCS: 36415; 80053; 82728; 84443; 85027

== ENCOUNTER 2023-10-27 17:11 | Outpatient (CLI) | payer MEDICARE, MEDICAID | END 2023-10-27 17:12 | disposition home or self-care (01) | LOC: LAB.WC 17:11 | PROVIDERS: ATTEND Obstetrics & Gynecology | DX: Z36.85 Encounter for antenatal screening for Streptococcus B (principal) | CPT/HCPCS: 87797 ==

== ENCOUNTER 2023-11-05 14:25 | Outpatient (CLI) | payer MEDICARE, MEDICAID ==
[2023-11-05 15:26] VITALS: BP 124/80
[2023-11-05 15:29] LABS: RUPTURE OF MEMBRANES PLUS NEGATIVE (NEGATIVE)
--- NOTE | 2023-11-05 15:40 | PROVIDER PROGRESS NOTE ---
- HPI Chief Complaint: Labor Check Current : Vital Signs Temperature 98.4 F 11/05/23 14:58 Heart Rate 90 11/05/23 14:58 Respiratory Rate 16 11/05/23 14:58 Blood Pressure 124/80 11/05/23 14:58 Temperature 98.4 F 11/05/23 14:58 Heart Rate 90 11/05/23 14:58 Respiratory Rate 16 11/05/23 14:58 Blood Pressure 124/80 11/05/23 14:58 O2 Saturation If not protocol: Oxygen Flow, liters/minute - Procedures OB Procedure Performed: NST Diagnosis/Indication for NST: labor NST Procedure: EFM: 140s, moderate variability, positive 15x15 accelerations, no decelerations [place]: none Cat 1/NST reactive Performed and read 11/05/23 Service Date of procedure: 11/05/23 - Plan Plan: 23yo at 37.3w presenting with her partner with abdominal cramping and leaking fluid for couple days. Denies bleeding. Good movement. care at and complicated by asthma, ADHD, autistic, anxiety. VSS GEN: NAD CV: Regular rate Resp: Breathing unlabored Abd: soft, nt Ext: Nt Speculum: no pooling, normal discharge noted, no bleeding, cervix appears closed SVE: closed ROMPlus negative 23yo at 37.3w, false labor - Labor precautions reviewed - Discharge to home, follow up as scheduled 11/10/23
== END 2023-11-05 15:35 | disposition home or self-care (01) ==
LOC: WFO 14:25 → FBP 14:26 → WFO 15:35
PROVIDERS: ATTEND Obstetrics & Gynecology
DX: O47.1 False labor at or after 37 completed weeks of gestation (principal); Z3A.37 37 weeks gestation of pregnancy
CPT/HCPCS: 59025; 84112; G0463; 99213; 99214

== ENCOUNTER 2023-11-24 15:10 | Outpatient (CLI) | payer MEDICARE, MEDICAID ==
[2023-11-24 15:43] VITALS: BP 120/72
--- NOTE | 2023-11-24 16:18 | PROVIDER PROGRESS NOTE ---
- HPI Chief Complaint: Labor Check Current : Vital Signs Temperature 97.9 F 11/24/23 15:38 Heart Rate 88 11/24/23 15:38 Respiratory Rate 18 11/24/23 15:38 Blood Pressure 120/72 11/24/23 15:38 - Procedures OB Procedure Performed: NST Diagnosis/Indication for NST: Other (Assure wellbeing) NST Procedure: NST Procedure Start Time 14:35 Stop Time 15:05 Service Date of procedure: 11/24/23 (Read 11/24/23) - Plan Plan: Patient is a 23-year-old G1, P0 at 40 weeks 1 day gestation presenting for rule out labor. She had been having contractions since this morning and began having more intense contractions. Small amount of bloody show, no active bleeding. No leaking fluid. Good movement. Physical exam General: Acute, oriented, no acute distress. Talking calmly between contractions FHT: 135 beats per baseline, moderate variability, accelerations present, no decelerations. Reactive NST [place]: Irregular Assessment and plan False labor -Patient was offered recheck versus going home and returning. She elects for going home and will return if contractions become more regular or stronger.
== END 2023-11-24 16:30 | disposition home or self-care (01) ==
LOC: WFO 15:10 → FBP 15:11 → WFO 16:30
PROVIDERS: ATTEND Obstetrics & Gynecology
DX: O47.1 False labor at or after 37 completed weeks of gestation (principal); Z3A.40 40 weeks gestation of pregnancy
CPT/HCPCS: 59025; 99213

== ENCOUNTER 2023-11-24 23:13 | Outpatient (CLI) | payer MEDICARE, MEDICAID ==
--- NOTE | 2023-11-25 00:37 | PROVIDER PROGRESS NOTE ---
- HPI Chief Complaint: Labor Check Current : Vital Signs Temperature 98.6 F 11/24/23 23:24 Heart Rate 86 11/24/23 23:24 Blood Pressure 121/67 11/24/23 23:24 Temperature 98.6 F 11/24/23 23:24 Heart Rate 86 11/24/23 23:24 Respiratory Rate Blood Pressure 121/67 11/24/23 23:24 O2 Saturation If not protocol: Oxygen Flow, liters/minute - Procedures NST Procedure: NST Procedure Start Time 15:24 Stop Time 15:54 Procedure Details: Patient is a 23-year-old G1, P0 at 40 weeks 2 days gestation presenting here for labor evaluation. She has good movement. Small amount of bloody show. No headache, change in vision, right upper quadrant pain. No leaking fluid. Physical exam General: Acute, oriented, no acute distress SVE: 1/50/-3 FHT: 125 beats per baseline, moderate variability, accelerations present, no decelerations. [place]: Irregular Assessment and plan 1. False labor -Patient remains unchanged from prior exam. Was rechecked after 2 hours and remained unchanged. Discussed labor precautions.
[2023-11-25] MEDS: hydrOXYzine PAMOATE 25 MG CAPSULE PO SCH (02:15)
[2023-11-25] MEDS: ACETAMINOPHEN 500 MG TABLET PO SCH (02:17)
[2023-11-25 03:15] VITALS: BP 122/67
== END 2023-11-25 02:20 | disposition home or self-care (01) ==
LOC: WFO 23:13 → FBP 23:14 → WFO 11-25 02:20
PROVIDERS: ATTEND Obstetrics & Gynecology
DX: O47.1 False labor at or after 37 completed weeks of gestation (principal); Z3A.40 40 weeks gestation of pregnancy
CPT/HCPCS: 59025; A9270; G0463; 99213; 99215

== ENCOUNTER 2023-11-25 06:20 | Inpatient (IN) | payer MEDICARE, MEDICAID ==
[2023-11-25] MEDS ORDERED: LACTATED RINGERS 1,000 ML ONE ×2 (08:06→08:16)
[2023-11-25] MEDS ORDERED: ONDANSETRON ODT 4 MG TABLET TL PRN (08:24)
[2023-11-25] MEDS ORDERED: miSOPROStoL 200 MCG TABLET BC PRN (08:24)
[2023-11-25] MEDS ORDERED: NIFEdipine 10 MG CAPSULE PO PRN (08:24)
[2023-11-25] MEDS ORDERED: LABETALOL 20 MG/4 ML SYRINGE IVP PRN ×3 (08:24)
[2023-11-25] MEDS ORDERED: ACETAMINOPHEN 500 MG TABLET PO PRN (08:24)
[2023-11-25] MEDS ORDERED: TRANEXAMIC ACID IN NACL 1,000 MG/100 ML BAG IV PRN (08:24)
[2023-11-25] MEDS ORDERED: hydrALAZINE INJ 20 MG/ML VIAL IVP PRN ×2 (08:24)
[2023-11-25] MEDS ORDERED: OXYTOCIN 10 UNIT/ML VIAL IM PRN (08:24)
[2023-11-25] MEDS ORDERED: METHYLERGONOVINE 0.2 MG/ML VIAL IM PRN (08:24)
[2023-11-25] MEDS ORDERED: TERBUTALINE 1 MG/ML VIAL SUBQ PRN (08:24)
[2023-11-25] MEDS ORDERED: OXYTOCIN/SODIUM CHLORIDE 500 ML IV PRN (08:24)
[2023-11-25] MEDS ORDERED: fentaNYL 100 MCG/2 ML VIAL IVP PRN (08:24)
[2023-11-25] MEDS ORDERED: miSOPROStoL 200 MCG TABLET PR PRN (08:24)
[2023-11-25] MEDS ORDERED: lidocaine 1% 20 ML MDV ID PRN (08:24)
[2023-11-25] MEDS ORDERED: ONDANSETRON 4 MG/2 ML VIAL ONE (08:31)
[2023-11-25] MEDS: LACTATED RINGERS 1,000 ML IV PRN (08:42)
[2023-11-25 08:45] LABS: BASOPHILS % (AUTO) 0.4 %; EOSINOPHILS % (AUTO) 0.1 %; HCT - HEMATOCRIT 34.1 % (37.0-47.0); HGB - HEMOGLOBIN 10.7 g/dL (12.0-16.0); LYMPHOCYTES # (AUTO) 1.3 10^3/uL (1.5-3.5); LYMPHOCYTES % (AUTO) 17.7 %; MEAN CORPUSCULAR HGB CONC 31.4 g/dL (32.0-36.0); MEAN PLATELET VOLUME 10.9 fL (7.9-10.8); MONOCYTES # (AUTO) 0.5 10^3/uL (0.0-1.0); MONOCYTES % (AUTO) 6.9 %; NEUTROPHILS # (AUTO) 5.5 10^3/uL (1.5-6.6); NEUTROPHILS % (AUTO) 73.6 %; PLT - PLATELET COUNT 239 10^3/uL (130-450); RED BLOOD COUNT 4.11 10^6/uL (4.20-5.40); RED CELL DISTRIBUTION WIDTH 15.8 % (12.0-15.0); WHITE BLOOD COUNT 7.4 x10^3/uL (4.8-10.8)
[2023-11-25] MEDS: SODIUM CHLORIDE FLUSH 0.9% 10 ML SYRINGE IVP PRN (08:45)
--- NOTE | 2023-11-25 08:46 | HISTORY & PHYSICAL EXAMINATION ---
Admit History - Visit Reason Visit Reason: Contractions - : 1 Parity: 0 Smoking Status: Former smoker - Mother's Labs Mother's Blood Type: positive: B Mother's RH: positive: Positive GBS: positive: Group B Step Negative Rubella Status: positive: Immune - Other Maternal History Other Maternal History: HPI: Patient is a 23-year-old G1, P0 at 40 weeks 2 days gestation presenting with contractions. These have increased in intensity over the evening. She came in triage twice previously without change, but has subsequently started making cervical change. She does have some mild spotting, but no sarah bleeding. She has good movement. Denies urinary urgency or dysuria. All other symptoms reviewed and were negative except per HPI. Course LMP: 02/16/23 SORAYA by LMP: 11/23/23 US: 05/10/2023 c/w LMP Final SORAYA: 11/22/2022 Problems: Proteinuria ANC c/b: 1. h/o in-patient mental health care, h/o "cutting" on L wrist. No longer doing this, working through other coping mechanisms - travelling (with her to [place] or [facility]) helps her, reading helps. Needs to establish with MH provider 2. history of thyroid cysts ? throat cysts ? f/u TSH with initial prenatals 05/12- TSH 0.51 T4- 11.2 3. early systolic murmur -pt previously had cardiac work up after stopping adderall when it started giving her palpitations. ROR signed - for echo from past workup. After further discussion, does not sound like Echo was performed and symptoms resolved after stopping adderall. 4. family history of deafness- Menier's - in many people 5. routine care -would like painless - discussed paul method 6. every day soda drinker -Encouraged to decrease multiple times 7. anemic - taking vitamins. 8. HIATAL HERNIA Using TUMS and pepcid. - is causing vomitting 9. Chronic biliary colic -Abnormal HIDA scan showing chronic disease in 2022. Intermittent symptoms this . FOB: Loronzo Pre- Weight:152. BMI: 28.86 Blood type: B+ Ab: NEG CBC: H/H 11.8/34.9 PLT 258 RUB: IMMUNE VZV: IMMUNE HBsAg: NEG HepC: NR RPR/AB-EIA:NR HIV:NR PAP:08/10/21 -NILM GC/CT:NEG HSV:Denies in self and partner Covid:x2 Flu:no FAS:Marginal previa Placenta:Posterior- edge of placenta 1.4cm from internal os Cord:3VC TOMY: EFW:473g 77.7% facial profile, seun, lips and ROVT not well seen. F/U- 08/31- all structures normal. marginal placenta previa not seen 50gm OGCT: CMP glucose 82 on 10/04 3HR GTT: TDAP:08/31 Breast Pump:08/31 3rd trimester CBC: 10.5/33.8/237 GBS:10/26 negative Delivery plan: epidural. Contraception: Unsure PMH ADHD Autism Restless leg syndrome Anxiety Thyroid nodule IBS Reactive airway disease PSH Tonsillectomy OB History SH Former smoker. No current tobacco, alcohol, drug use. Family History Mother: Anemia, depression, seizures, headaches, psychiatric care, obesity, anxiety, ND at age 56 Father: Arthritis, anxiety, depression, stroke, headaches, Sleep apnea Allergies Opioids: Shortness of breath Medications vitamin Ferrous sulfate 325 mg once a day Physical exam: General: Alert, oriented, no acute distress Head: Normal cephalic atraumatic Eyes: PERRLA, extraocular motions intact. Respiratory: Normal rate of respiration. No accessory muscle use, normal respiratory effort. Cardiovascular: Regular rate and rhythm Abdomen: Gravid, nontender, nondistended Extremities: Normal range of motion Neuro: Oriented x3. Normal movements Psych: Appropriate mood and affect. Normal judgment and insight SVE: 3/100/-2 FHT: 135 beats per baseline, moderate variability, accelerations present, no decelerations. Reactive NST [place]: Difficult to trace, but every 3 to 5 minutes Assessment and plan 40 weeks gestation -Admit to L&D, admit labs, epidural at patient's request. Anticipate AROM, anticipate -Small mount of bloody show. No sarah bleeding fetus category 1. Term labor -Cervical change from 1 to 3 cm since last check. Depression with history of cutting -Will monitor for depression Systolic murmur -not appreciated today Chronic biliary colic -no symptoms today Anemia Most recent H/H in September showed 10.5/33.8% - HPI Current EDU 11/23/23 Gestation 40 Weeks and 2 Days 1 Vital Signs Temperature 98.3 F 11/25/23 06:48 Temperature 98.3 F 11/25/23 06:48 Heart Rate Respiratory Rate Blood Pressure O2 Saturation If not protocol: Oxygen Flow, liters/minute - NST Procedure NST Procedure Start Time 15:24 Stop Time 15:54 Meds/Allgy - Home Medications Home Medications: Ambulatory Orders Medication Instructions Recorded Confirmed Amox/Clav 875/125 [Augmentin] 1 tab PO Q12H #14 tablet 06/24/23 - Allergies Allergies/Adverse Reactions: Allergies Allergy/AdvReac Type Severity Reaction Status Date / Time codeine [Codeine] Allergy throat Verified 10/14/23 10:34 swelling Physical - Abdominal Exam Vital Signs: Temp Pulse Resp BP Pulse Ox O2 Flow Rate 98.3 F 11/25/23 06:48 Plan for Labor - Plan For Labor I expect patient to be DC'd or transferred within 96 hours.: Yes
[2023-11-25] MEDS ORDERED: ROPIVACAINE 0.2% 200 MG/100 ML BAG EP ONE (08:49)
[2023-11-25] MEDS: LACTATED RINGERS 1,000 ML IV SCH (09:44)
[2023-11-25] MEDS ORDERED: ePHEDrine 50 MG/ML VIAL IVP PRN (09:58)
[2023-11-25] MEDS ORDERED: ROPIVACAINE 0.2% 200 MG/100 ML BAG EP PRN (09:58)
[2023-11-25] MEDS ORDERED: NALOXONE 0.4 MG/ML VIAL IVP PRN (09:58)
[2023-11-25] MEDS ORDERED: ONDANSETRON 4 MG/2 ML VIAL IVP PRN (09:58)
--- NOTE | 2023-11-25 10:32 | PHARMACY PROGRESS NOTE ---
- Best Possible Medication History Admit Date and Time: 11/25/23 0820 Processed by: Pharmacy Medications reviewed in ED?: No Medication History completed: Yes Patient Interview: Completed Secondary Source(s): Insurance records As the person ultimately responsible for medication therapy, providers are able to order a medication from an existing home medication list in [facility] via the "Reconcile Routine" prior to Confirmation of that medication by clinical support manager. Such practice is discouraged except when the physician, in their clinical judgment, deems that a medical need exists for a medication without regard to previous use.
[2023-11-25] MEDS: SODIUM CHLORIDE FLUSH 0.9% 10 ML SYRINGE IVP SCH (17:00)
[2023-11-25] MEDS ORDERED: SODIUM CHLORIDE 0.9% 10 ML VIAL IVP ONE (18:50)
[2023-11-25] MEDS ORDERED: LIDOCAINE 2%-EPI 1:100000 20 ML MDV ONE (18:50)
[2023-11-25] MEDS: OXYTOCIN/SODIUM CHLORIDE 500 ML IV SCH (21:55)
--- NOTE | 2023-11-25 22:44 | DELIVERY NOTE ---
<Mita Mac - Last Filed: 11/25/23 23:11> Delivery Note - Labor Labor: positive: Spontaneous - Infant Delivery Method Delivery Method: positive: Spontaneous vaginal delivery - Presentation Presentation: positive: ZACHARIAH - right occiput anterior - Nuchal Cord Nuchal Cord: positive: None - Anesthetic Anesthetic Type: - Amniotic Fluid Description Amniotic Fluid Description: positive: Clear - Laceration Laceration: positive: 2nd degree, Perineal - Suture Suture Type: positive: Vicryl Suture Size: positive: 2-0 - Delivery Outcome Delivery Outcome: positive: Livebirth - [place] : positive: Placed in direct skin contact with mother, Bulb syringe, Stimulated, [place] used sex: positive: Female - Cord Cord: positive: 3 vessels - Placenta Placenta: positive: Intact - Estimated Blood Loss Estimated Blood Loss (in cc): 350 - Post Delivery Events Post Delivery Events: positive: No post delivery events - Delivery Comments (Free Text/Narrative) Delivery Comments (Free Text/Narrative): This 23 -year-old, G1 P 0 . @ 40+2 gestation confirmed by 1st trimester ul trasound, presented last night in early labor. Upon admission, her cervix was 3cm. Vertex presentation by exam. GBS negative. FHR pattern demonstrated 115 baseline in a category I prior to second stage. Epidural placed upon maternal request. SROM occurred @ 1232. She then progressed to complete/complete @ 1727 and ready to deliver. Second stage began @ 1800. Prolonged second stage. Continued strong maternal efforts and progress. Pitocin initiated just prior to time of delivery r/t decreased contraction frequency. Pitocin maximum infusion rate 2 mu/Min. : Spontaneous vaginal delivery of a viable female infant (Dionne) on 11/25/2023 @ 2207. No nuchal cord. The was placed on maternal abdomen, stimulated, dried and then placed skin to skin. Apgars 8@ 1 min, and 9@ 5 min utes. Pitocin administered via IV for hemostasis. The umbilical cord was allowed to stop pulsating at which time it was doubly clamped by delivering provider and cut by Quin. 3VC. Cord blood was obtained. Fundal massage and gently cord traction applied for active management of the third stage, placenta delivered spontaneously and intact @ 2212. EBL 350cc. Placenta WAS NOT sent to pathology. Thirty units of Pitocin were added to the IV fluid and allowed to run freely. Uterine massage was performed until uterus was deemed firm. Inspection of the perineum noted a 2nd- degree midline laceration. Repaired in the standard fashion under epidural adequate anesthesia with 2-0 vicryl under sterile conditions. Upon re-inspection the patient was hemostatic. Uterus again massaged and found to be firm. Needle and sponge counts were correct. Fourth stage: Uterine fundus firm and there is no excessive bleeding. The perineum, vagina and cervix were inspected. Perineum well approximated. Rectal exam completed (intact). Family bonding well. Both mother and baby are in stable condition. Upon my presentation to her delivery, Michael verbally consented to my participation as a student nurse homebirth midwife. BILLIE Berumen, Student Nurse Audit Associate <Precious Taylor M - Last Filed: 11/26/23 17:02> Delivery Note - Delivery Comments (Free Text/Narrative) Delivery Comments (Free Text/Narrative): I was present and participated in delivery performed by BILLIE Berumen, Student Nurse Audit Associate and agree with documentation. Precious Taylor MD
[2023-11-25] MEDS ORDERED: diphenhydrAMINE 25 MG CAPSULE PO PRN (23:28)
[2023-11-25] MEDS ORDERED: WITCH HAZEL/GLYCERIN 1 PAD TOP PRN (23:28)
[2023-11-25] MEDS ORDERED: LACTATED RINGERS 1,000 ML IV SCH (23:45)
[2023-11-26] MEDS: IBUPROFEN 800 MG TABLET PO SCH (00:09)
[2023-11-26] MEDS: ACETAMINOPHEN 500 MG TABLET PO SCH (00:10)
--- NOTE | 2023-11-26 08:34 | PROVIDER PROGRESS NOTE ---
Subjective - Prog Note Date Prog Note Date: 11/26/23 Prog Note Time: 08:34 - Subjective Pt reports feeling: Improved Subjective: This 23 -year-old, G1 P 0 . @ 40+2 gestation in early labor. Her labor progressed spontaneously. Prolonged second stage. Spontaneous vaginal delivery of a viable female (Dionne) on 11/25/2023 @ 2207. Patient reports she is "feeling great" Comfortable WITHOUT pain managment Lochia appropriate. Denies heavy bleeding. Ambulating. Tolerating oral intake. Diet: Regular. Voiding without difficulty. Passing flatus. Denies BM. Patient is bonding with baby in room Breast feeding going well. Denies feeling lightheaded, dizzy or excessively fatigued. Objective - Vital Signs/Intake & Output Reviewed Vital Signs: Yes Vital Signs: Vital Signs x48h Temp Pulse Resp BP Pulse Ox 11/26/23 07:56 36.9 C 84 16 126/85 H 11/26/23 04:34 37.2 C 103 H 16 135/76 H 99 Intake & Output: Intake & Output 11/23/23 11/24/23 11/25/23 11/26/23 23:59 23:59 23:59 23:59 Intake Total 2450 Output Total 175 200 Balance 2275 -200 - Objective General Appearance: positive: No acute distress - Lab Results [place]: 11/25/23 07:47 Other Labs: Lab Results x24hrs 11/25/23 11/25/23 Range/Units 07:47 07:47 WBC 7.4 (4.8-10.8) x10^3/uL RBC 4.11 L (4.20-5.40) 10^6/uL Hgb 10.7 L (12.0-16.0) g/dL Hct 34.1 L (37.0-47.0) % MCV 83.0 (81.0-99.0) fL MCH 26.0 L (27.0-31.0) pg MCHC 31.4 L (32.0-36.0) g/dL RDW 15.8 H (12.0-15.0) % Plt Count 239 (130-450) 10^3/uL MPV 10.9 H (7.9-10.8) fL Neut # (Auto) 5.5 (1.5-6.6) 10^3/uL Lymph # (Auto) 1.3 L (1.5-3.5) 10^3/uL [place] # (Auto) 0.5 (0.0-1.0) 10^3/uL Eos # (Auto) 0.0 (0.0-0.7) 10^3/uL Baso # (Auto) 0.0 (0.0-0.1) 10^3/uL Absolute Nucleated RBC 0.00 x10^3/uL Nucleated RBC % 0.0 /100WBC Blood Type B POSITIVE Antibody Screen NEGATIVE - Other Results/Comments Other Results/Comments: General: Alert, oriented, no apparent distress. Cardiovascular: No edema. Regular rate. Regular rhythm. Lungs: No increased work of breathing. Abdomen: Uterus firm. Below umbilicus. No guarding or rebound tendernes. Extremities: No pain on palpation. Distal pulses intact. ABX Reporting Has patient been on IV antibiotics over the past 48 hours?: No Assessment/Plan - Problem List (1) Vaginal delivery Impression: day 1. 23yo s/p on 11/26/2023 following prolonged second stage. - Routine - Anticipate discharge tomorrow (2) Prolonged second stage of labor Impression: Reviewed hemorrhage precautions Routine care. (3) Perineal laceration Impression: Reviewed routine perineal care. (4) Other mental disorders complicating the puerperium Impression: States mood is good. Discussed mood changes and resources.
[2023-11-26] MEDS: CALCIUM CARBONATE CHEW 500 MG TABLET PO PRN (23:38)
--- NOTE | 2023-11-27 11:14 | Discharge Plan ---
Discharge Plan Problem Reviewed?: Yes Disposition: Home, Self Care Condition: Good Activity Restrictions: Additional Comments Instruction Topics: Vaginal After, Depression No Smoking: If you smoke, Please STOP! Call for help. Follow-up with: Precious Taylor MD [Provider Admit Priv/Credential] -
--- NOTE | 2023-11-27 11:15 | DISCHARGE SUMMARY ---
Discharge Summary Admit Date: 11/25/23 Discharge Date: 11/27/23 Discharging Provider: Jay Giles MD Condition at Discharge: Good Discharge Disposition: 01 Home, Self Care - DIAGNOSES Admission Diagnoses: Term labor 40 weeks gestation Depression with history of cutting Systolic murmur Chronic biliary colic Anemia Discharge Diagnoses with Status of Each Condition: Status post spontaneous vaginal delivery Delivered of live gonzalez - HPI History of Present Illness: Subjective Patient reports she is doing well. Lochia appropriate. Denies heavy bleeding. Ambulating. Pelvic and abdominal pain well-controlled. Tolerating oral intake. Diet: Regular. Voiding without difficulty. Passing flatus. Denies BM. Patient is bonding with baby in room Breast feeding going well. Supplementing with bottlefeeding Denies feeling lightheaded, dizzy or excessively fatigued. Objective General: Alert, oriented, no apparent distress. Cardiovascular: Regular rate. Regular rhythm. Lungs: No increased work of breathing. Abdomen: Uterus firm. Below umbilicus. No guarding or rebound. Extremities: No pain on palpation. No cords palpated. Distal pulses intact. - HOSPITAL COURSE Hospital Course: Patient is admitted at 40 weeks gestation in spontaneous labor. Patient received an epidural for pain control. She had spontaneous rupture of membranes then progressed to complete. Second stage was prolonged, but delivered spontaneously. She had a second-degree midline laceration. care was uneventful and she was discharged on day 2 with her . - ALLERGIES Allergies/Adverse Reactions: Allergies Allergy/AdvReac Type Severity Reaction Status Date / Time codeine [Codeine] Allergy throat Verified 10/14/23 10:34 swelling - MEDICATIONS Home Medications: Ambulatory Orders Medication Instructions Recorded Confirmed Acetaminophen [Acetaminophen Extra 1,000 mg PO Q8H PRN #60 tablet 11/27/23 Strength] Docusate Sodium 100Mg Capsule 100 - 200 mg PO BID PRN #60 cap 11/27/23 [Colace 100Mg Capsule] Ibuprofen [Motrin] 600 mg PO Q6H PRN #30 tab 11/27/23 - LABS Result Diagrams: 11/25/23 07:47 - FOLLOW UP Follow Up: With [facility] women[facility] care in 1 week. - TIME SPENT Time Spent in Discharge (Minutes): 20
[2023-11-27 12:25] VITALS: BP 129/77; O2SAT 100
--- NOTE | 2023-11-27 14:27 | Labor Flowsheet ---
Labor Flowsheet Datetime Report Generated by CPN: 11/27/2023 14:27 Datetime: 11/27/2023 12:15 VITAL SIGNS NBP Sys/Harriet/Mean (mmHg): 129 : 77 : 91 Pulse: 71 SpO2 (%): 100 Datetime: 11/26/2023 00:34 Stage of : Datetime: 11/26/2023 00:01 Respirations: 16 PAIN Pain Scale: 4 Pain Presence: Intermittent Pain Type: Cramping Pain Location: Abdomen Pain Goal: 3 Pain Relief Measures: Pain Medication Given Datetime: 11/25/2023 22:12 MEDICATIONS Pitocin (milliunits): Started @ 500ml/hr PP pit started Datetime: 11/25/2023 22:07 UTERINE ACTIVITY Monitor Mode: Palpation Frequency (min): x3 Quality: Strong Pattern: Normal: <= 5 Contractions in 10 Minutes Resting Tone (Palpate): Relaxed ASSESSMENT A Monitor Mode: External US FHR Baseline Rate : 95 FHR Baseline Changes: Bradycardia Variability: Moderate 6-25 bpm Accelerations: None Decelerations: None Category: Category II Datetime: 11/25/2023 22:01 Patient Position/Activity: Right Lateral Datetime: 11/25/2023 22:00 Duration (sec): 120-180 Datetime: 11/25/2023 21:57 COMMUNICATION Communication: Call/Page Placed to Provider Provider Notified (Name): Dr Frank Notification Reason: Status Update Communication Comments: peds notified needed to bedside for delivery 2/2 cat 2 fht, prolonged secon d stage, possibility of operative delivery Datetime: 11/25/2023 21:45 Monitor Interventions for UA: [place] Adjusted Datetime: 11/25/2023 21:32 LaborFlag: Labor Datetime: 11/25/2023 21:20 Temperature (C): 36.9 Datetime: 11/25/2023 20:42 Station: 3 Datetime: 11/25/2023 20:16 STAGE 2 Pushing: Coached on Pushing; Urge to Push Pushing Position: Pushing with Contractions; Pushing Lithotomy Pushing Progress: Descent with Pushing; with Pushing Datetime: 11/25/2023 19:32 Comments: Dr Brandon at bedside Datetime: 11/25/2023 19:00 Contraction Comments: patient pushing involuntarily and regardless of contraction Actions for Decelerations: Hands and Knees; Sterile Vaginal Exam Datetime: 11/25/2023 18:54 Procedure Verify: Correct Patient Identity; Agreement on Procedure to be Done Epidural Procedure Other: Redose Datetime: 11/25/2023 18:53 Anesthesia Comments: S. Lozada HOME CARE ASSOCIATE at bedside Datetime: 11/25/2023 18:52 Hygiene: [facility] Datetime: 11/25/2023 18:51 Membranes Ruptured Date/Time: 11/25/2023 12:32 Datetime: 11/25/2023 18:50 Stage 2 Comments: Pushing effectively in hands and knees. Datetime: 11/25/2023 17:40 I/O Interventions: [place] Discontinued Patient Care Comments: 350ml Datetime: 11/25/2023 17:27 VAGINAL EXAM Dilatation (cm): 10.0 Effacement (%): 100 Exam by: Vanessa RN Datetime: 11/25/2023 16:51 Membrane Comments: unable to potato picker contractions in this position. Patient reports feeling rectal pressure q2-5 mins with abdominal tightening. Datetime: 11/25/2023 16:40 Vaginal Bleeding: Small Cervix, Consistency: Soft Cervix, Position: Posterior Position 'A': Right Occipital Posterior Datetime: 11/25/2023 15:42 Monitor Interventions for FHR: Ultrasound Adjusted Datetime: 11/25/2023 15:19 Provider Reviewed Strip: Yes Datetime: 11/25/2023 15:04 Pain Coping: Sleeping Pain Assessment Comments: denies feeling vaginal or rectal pressure. Pain Comfort Measures: Breathing/Relaxation Anesthesia Level Check: T9 Datetime: 11/25/2023 13:45 Temperature Route: Oral Datetime: 11/25/2023 12:32 Membrane Status: Ruptured Membranes Rupture Method: Spontaneous Amniotic Fluid Color: Clear Amniotic Fluid Amount: Small Amniotic Fluid Odor: Normal Datetime: 11/25/2023 10:57 Procedures: Sterile Vag Exam Datetime: 11/25/2023 09:20 Epidural Procedure: Test Dose Datetime: 11/25/2023 09:02 PROCEDURE TIME OUT Procedure Type: Pre-Epidural Datetime: 11/25/2023 09:00 ANESTHESIA Anesthesia Plans: Epidural Epidural Positioning: Sitting Datetime: 11/25/2023 08:26 MATERNAL ASSESSMENT Level of Consciousness: Alert DTR's/Clonus: No Clonus Headache: Denies Breath Sounds, Left: Clear and Equal Breath Sounds, Right: Clear and Equal Nausea/Vomiting: Denies RUQ Epigastric Pain: Denies Datetime: 11/25/2023 07:47 PATIENT CARE IV/Blood Work: IV Started; IV Bolus Started; Labs Drawn with IV Start
== END 2023-11-27 14:25 | disposition home or self-care (01) | DRG 807 ==
LOC: WFO 06:20 → FBP 06:23 → WFO 08:19 → FBP 08:20
PROVIDERS: ADMIT Obstetrics & Gynecology; ATTEND Obstetrics & Gynecology
PROC: 10E0XZZ Delivery of Products of Conception, External Approach (ICD-10-PCS; principal; 2023-11-25)
PROC: 0KQM0ZZ Repair Perineum Muscle, Open Approach (ICD-10-PCS; 2023-11-25)
DX: O70.1 Second degree perineal laceration during delivery (principal); Z34.03 Encounter for supervision of normal first pregnancy, third trimester; Z37.0 Single live birth; O99.02 Anemia complicating childbirth; Z3A.40 40 weeks gestation of pregnancy; O99.344 Other mental disorders complicating childbirth; F32.A Depression, unspecified; O99.62 Diseases of the digestive system complicating childbirth; K80.50 Calculus of bile duct without cholangitis or cholecystitis without obstruction; Z91.52 Personal history of nonsuicidal self-harm; O63.1 Prolonged second stage (of labor); O48.0 Post-term pregnancy; Z87.891 Personal history of nicotine dependence; O75.89 Other specified complications of labor and delivery; R01.1 Cardiac murmur, unspecified
CPT/HCPCS: 36415; 59409; 85025; 86850; 86900; 86901; A9270; J7120